=== PATIENT | male | born 1960 | race Two or more races ===

== ENCOUNTER 2020-04-19 13:09 | Inpatient (IN) | payer MEDICAID, OTHER ==
[~2020-04-19] VITALS: Ht 160 cm; Wt 78.0 kg
[2020-04-19 14:00] LABS: Basophils # (auto) 0 10 ^3/uL (0-0.2); Eosinophils # (auto) 0 10 ^3/uL (0-0.8); Lymphocytes # (auto) 0.5 10 ^3/uL (0.4-5.4); Nucleated Red Blood Cells % 0.1 %
[2020-04-19 14:03] LABS: Basophils % (auto) 0.2 % (0.0-2.0); Hematocrit 39.3 % (41.0-53.0); Hemoglobin 12.7 g/dL (13.5-17.5); Lymphocytes % (auto) 7.5 % (10.0-50.0); Mean Corpuscular Hemoglobin 24.4 pg (28.0-32.0); Mean Corpuscular Hgb Conc. 32.4 g/dL (32.0-36.0); Mean Corpuscular Volume 75.2 fL (80.0-100.0); Monocytes # (auto) 0.7 10 ^3/uL (0-1.3); Monocytes % (auto) 9.3 % (0.0-12.0); Neutrophils # (auto) 5.8 10 ^3/uL (1.6-8.6); Platelet Count (auto) 123 10^3/uL (140-450); Red Blood Cells 5.22 10^6/uL (4.5-5.90); Red Cell Distribution Width 17.9 % (11.8-14.3)
[2020-04-19 14:24] LABS: Albumin 2.9 g/dL (3.4-5.0); Anion Gap 10 (5-15); Blood Urea Nitrogen 18 mg/dL (7-18); Carbon Dioxide 18 mmol/L (21-32); Chloride 105 mmol/L (98-107); GFR African American 111 mL/min; GFR Non-African American 91 mL/min; Glucose 243 mg/dL (74-106); Potassium 4.5 mmol/L (3.5-5.1); Sodium 133 mmol/L (136-145)
[2020-04-19 14:29] LABS: Alanine Aminotransferase 47 U/L (16-61); Alkaline Phosphatase 110 U/L (45-117); Aspartate Aminotransferase 54 U/L (15-37); Bilirubin, Total 0.7 mg/dL (0.2-1.0); Total Protein 8.5 g/dL (6.4-8.2)
[2020-04-19] MEDS ORDERED: DOXYCYCLINE 100MG/250ML 250 ML IV ONE (17:15)
[2020-04-19] MEDS ORDERED: ZINC SULFATE 220mg CAP or TAB PO ONE (17:15)
[2020-04-19] MEDS ORDERED: DexAMETHasone SOD PHOS 10MG/1ML VIAL INJ IV ONE (17:15)
[2020-04-19] MEDS ORDERED: MORPHINE SULF INJ 2 MG/ML SYRINGE 1ML IV PRN ×2 (18:00→20:00)
[2020-04-19] MEDS ORDERED: NITROGLYCERIN 0.4 MG SL TAB SL PRN (18:00)
[2020-04-19] MEDS ORDERED: TEMAZEPAM 15 MG CAP PO PRN (20:00)
[2020-04-19] MEDS ORDERED: PROMETHAZINE HCL 25 MG/ML 1ML IV PRN (20:00)
[2020-04-19] MEDS: SODIUM CHLORIDE 0.9% 1,000 ML IV SCH (20:00)
[2020-04-19] MEDS ORDERED: LACTULOSE 20Gm/30ML SOLN PO PRN (20:00)
[2020-04-19] MEDS ORDERED: traMADol HCL 50 MG TAB PO PRN (20:00)
[2020-04-19] MEDS ORDERED: ACETAMINOPHEN 500 MG TAB PO PRN (20:00)
[2020-04-19] MEDS ORDERED: REMDESIVIR PER PHARMACY IV SCH (20:00)
[2020-04-19] MEDS ORDERED: DEXTROSE (50%) 50ML SYRG IV PRN (20:00)
[2020-04-19] MEDS ORDERED: ENOXAPARIN SOD 40 MG/0.4 ML SYRINGE SC SCH (22:00)
[2020-04-19] MEDS: InsuLIN REG 1unit/0.01ml Soln (100units/ml) SC SCH (22:00)
[2020-04-19] MEDS: ACCU-CHEK COMFORT CURVE STRIP VI SCH (22:38)
[2020-04-19] MEDS: DOXYCYCLINE 100MG/250ML 250 ML IV SCH (23:44)
[2020-04-19] MEDS: FAMOTIDINE 20 MG TAB PO SCH (23:44)
[2020-04-20 05:57] LABS: Basophils # (auto) 0 10 ^3/uL (0-0.2); Basophils % (auto) 0.1 % (0.0-2.0); Eosinophils # (auto) 0 10 ^3/uL (0-0.8); Lymphocytes # (auto) 0.3 10 ^3/uL (0.4-5.4); Mean Corpuscular Volume 75.2 fL (80.0-100.0); Monocytes # (auto) 0.2 10 ^3/uL (0-1.3); Neutrophils # (auto) 2.2 10 ^3/uL (1.6-8.6); White Blood Cell 2.7 10^3/uL (4.4-10.8)
[2020-04-20 05:59] LABS: Hematocrit 36.4 % (41.0-53.0); Hemoglobin 11.7 g/dL (13.5-17.5); Lymphocytes % (auto) 12.5 % (10.0-50.0); Mean Corpuscular Hemoglobin 24.2 pg (28.0-32.0); Mean Corpuscular Hgb Conc. 32.1 g/dL (32.0-36.0); Monocytes % (auto) 6.7 % (0.0-12.0); Neutrophils % (auto) 80.7 % (37.0-80.0); Nucleated Red Blood Cells % 0.3 %; Platelet Count (auto) 108 10^3/uL (140-450); Red Blood Cells 4.84 10^6/uL (4.5-5.90); Red Cell Distribution Width 17.9 % (11.8-14.3)
[2020-04-20 06:12] LABS: Albumin 2.6 g/dL (3.4-5.0); Calcium 8.2 mg/dL (8.5-10.1); Potassium 4.5 mmol/L (3.5-5.1)
[2020-04-20 06:15] LABS: BUN/Creatinine Ratio 29.7; Bilirubin, Total 0.7 mg/dL (0.2-1.0); Total Protein 7.9 g/dL (6.4-8.2)
[2020-04-20] MEDS: ACCU-CHEK COMFORT CURVE STRIP VI SCH ×4 (07:00→21:41)
[2020-04-20] MEDS: InsuLIN REG 1unit/0.01ml Soln (100units/ml) SC SCH ×6 (08:00→21:45)
[2020-04-20] MEDS: BUDESONIDE (INHALATION) 180 MCG IH IN SCH ×3 (08:04→22:00)
[2020-04-20] MEDS: DOXYCYCLINE 100MG/250ML 250 ML IV SCH ×2 (08:20→20:47)
[2020-04-20] MEDS: cefTRIAXone 1GM/50ML D5W 50 ML IV SCH (10:11)
[2020-04-20] MEDS: FAMOTIDINE 20 MG TAB PO SCH ×2 (10:12→21:51)
[2020-04-20] MEDS: ASCORBIC ACID 1,000 MG TAB PO SCH (10:12)
[2020-04-20] MEDS: CHOLECALCIFEROL (VITD3) 2,000 UNIT CAP PO SCH (10:12)
[2020-04-20] MEDS: ENOXAPARIN SOD 40 MG/0.4 ML SYRINGE SC SCH (10:12)
[2020-04-20] MEDS: SODIUM CHLORIDE 0.9% 1,000 ML IV SCH ×2 (10:12→21:51)
[2020-04-20] MEDS: DexAMETHasone SOD PHOS 10MG/1ML VIAL INJ IV SCH (10:12)
[2020-04-20] MEDS: ZINC SULFATE 220mg CAP or TAB PO SCH (10:12)
[2020-04-20] MEDS ORDERED: REMDESIVIR 200 MG in NS 210ml LOADING DOSE ADULT IV ONE (17:00)
[2020-04-20] MEDS: ALBUTEROL SULF HFA 90MCG INH 200DOSE IN PRN (23:28)
[2020-04-21] MEDS: InsuLIN REG 1unit/0.01ml Soln (100units/ml) SC SCH ×9 (06:47→23:40)
[2020-04-21] MEDS: ACCU-CHEK COMFORT CURVE STRIP VI SCH ×4 (06:48→22:00)
[2020-04-21] MEDS: ALBUTEROL SULF HFA 90MCG INH 200DOSE IN PRN ×2 (07:07→19:51)
[2020-04-21] MEDS: BUDESONIDE (INHALATION) 180 MCG IH IN SCH ×2 (07:07→19:51)
[2020-04-21] MEDS ORDERED: ENOXAPARIN SOD 60 MG/0.6 ML SYRINGE SC ONE (07:26)
[2020-04-21] MEDS: FAMOTIDINE 20 MG TAB PO SCH ×2 (08:24→22:00)
[2020-04-21] MEDS: CHOLECALCIFEROL (VITD3) 2,000 UNIT CAP PO SCH (08:24)
[2020-04-21] MEDS: ASCORBIC ACID 1,000 MG TAB PO SCH (08:24)
[2020-04-21] MEDS: ENOXAPARIN SOD 40 MG/0.4 ML SYRINGE SC SCH (08:24)
[2020-04-21] MEDS: ZINC SULFATE 220mg CAP or TAB PO SCH (08:24)
[2020-04-21] MEDS: DexAMETHasone SOD PHOS 10MG/1ML VIAL INJ IV SCH (08:24)
[2020-04-21] MEDS: DOXYCYCLINE 100MG/250ML 250 ML IV SCH ×2 (08:24→20:45)
[2020-04-21] MEDS: cefTRIAXone 1GM/50ML D5W 50 ML IV SCH (08:24)
[2020-04-21 08:53] LABS: Basophils # (auto) 0 10 ^3/uL (0-0.2); Eosinophils # (auto) 0 10 ^3/uL (0-0.8); Lymphocytes # (auto) 0.3 10 ^3/uL (0.4-5.4); Mean Corpuscular Volume 76.4 fL (80.0-100.0); Monocytes # (auto) 0.6 10 ^3/uL (0-1.3); Platelet Count (auto) 125 10^3/uL (140-450); White Blood Cell 7.2 10^3/uL (4.4-10.8)
[2020-04-21 08:55] LABS: Hematocrit 36.1 % (41.0-53.0); Hemoglobin 11.3 g/dL (13.5-17.5); Lymphocytes % (auto) 4.6 % (10.0-50.0); Mean Corpuscular Hgb Conc. 31.4 g/dL (32.0-36.0); Monocytes % (auto) 8.3 % (0.0-12.0); Neutrophils # (auto) 6.3 10 ^3/uL (1.6-8.6); Neutrophils % (auto) 87.1 % (37.0-80.0); Red Blood Cells 4.72 10^6/uL (4.5-5.90)
[2020-04-21 09:11] LABS: Albumin 2.6 g/dL (3.4-5.0); BUN/Creatinine Ratio 37.5; Potassium 4.3 mmol/L (3.5-5.1)
[2020-04-21 09:14] LABS: Bilirubin, Total 0.5 mg/dL (0.2-1.0); Lactic Acid w/Reflex 2.2 mmol/L (0.4-2.0); Total Protein 7.6 g/dL (6.4-8.2)
[2020-04-21 09:24] LABS: CRP High Sensitivity 3.1 mg/dL (< 0.3)
[2020-04-21] MEDS ORDERED: INSULIN LANTUS (GLARGINE) 1 /0.01ml (100units/ml) SC SCH (10:00)
[2020-04-21 10:53] LABS: % Iron Saturation 6.3 % (20-55)
[2020-04-21] MEDS: SODIUM CHLORIDE 0.9% 1,000 ML IV SCH (11:26)
[2020-04-21] MEDS ORDERED: FUROSEMIDE 20 MG/2 ML VIAL IV ONE (13:30)
[2020-04-21] MEDS ORDERED: POTASSIUM CHL 10 Meq TABLET PO ONE (13:30)
[2020-04-21] MEDS ORDERED: ENOXAPARIN SOD 80 MG/0.8ML SYRINGE SC ONE (14:00)
[2020-04-21] MEDS: REMDESIVIR 100 MG in SODIUM CHL 0.9% 250 ML IV SCH (17:18)
[2020-04-21] MEDS: ENOXAPARIN SOD 80 MG/0.8ML SYRINGE SC SCH (22:00)
[2020-04-21] MEDS: INSULIN LANTUS (GLARGINE) 1 /0.01ml (100units/ml) SC SCH (22:00)
[2020-04-22] MEDS: BUDESONIDE (INHALATION) 180 MCG IH IN SCH ×2 (06:39→22:10)
[2020-04-22] MEDS: ALBUTEROL SULF HFA 90MCG INH 200DOSE IN PRN ×2 (06:39→22:10)
[2020-04-22 06:44] LABS: Basophils # (auto) 0 10 ^3/uL (0-0.2); Basophils % (auto) 0.1 % (0.0-2.0); Eosinophils # (auto) 0 10 ^3/uL (0-0.8); Hemoglobin 12.1 g/dL (13.5-17.5); Lymphocytes # (auto) 0.5 10 ^3/uL (0.4-5.4); Monocytes # (auto) 0.8 10 ^3/uL (0-1.3); Nucleated Red Blood Cells % 0.1 %
[2020-04-22 06:56] LABS: Hematocrit 36.9 % (41.0-53.0); Lymphocytes % (auto) 6.5 % (10.0-50.0); Mean Corpuscular Hemoglobin 24.4 pg (28.0-32.0); Mean Corpuscular Hgb Conc. 32.8 g/dL (32.0-36.0); Mean Corpuscular Volume 74.4 fL (80.0-100.0); Monocytes % (auto) 10.6 % (0.0-12.0); Neutrophils # (auto) 6.1 10 ^3/uL (1.6-8.6); Neutrophils % (auto) 82.8 % (37.0-80.0); Platelet Count (auto) 141 10^3/uL (140-450); Red Blood Cells 4.96 10^6/uL (4.5-5.90); Red Cell Distribution Width 17.9 % (11.8-14.3); White Blood Cell 7.4 10^3/uL (4.4-10.8)
[2020-04-22 07:00] LABS: INR 1.24 (0.9-1.15); Partial Thromboplastin Time 36.2 sec (23.0-31.2)
[2020-04-22] MEDS: InsuLIN REG 1unit/0.01ml Soln (100units/ml) SC SCH ×7 (07:00→22:00)
[2020-04-22 07:01] LABS: Potassium 4.3 mmol/L (3.5-5.1)
[2020-04-22 07:21] LABS: Albumin 2.7 g/dL (3.4-5.0); BUN/Creatinine Ratio 44.3; Bilirubin, Total 0.6 mg/dL (0.2-1.0); Calcium 8.8 mg/dL (8.5-10.1); Magnesium 2.4 mg/dL (1.6-2.6); Total Protein 7.4 g/dL (6.4-8.2)
[2020-04-22] MEDS: ACCU-CHEK COMFORT CURVE STRIP VI SCH ×4 (07:57→22:00)
[2020-04-22] MEDS: DOXYCYCLINE 100MG/250ML 250 ML IV SCH ×2 (07:57→20:00)
[2020-04-22] MEDS: cefTRIAXone 1GM/50ML D5W 50 ML IV SCH (09:56)
[2020-04-22] MEDS: POTASSIUM CHL 10 Meq TABLET PO SCH (09:57)
[2020-04-22] MEDS: FUROSEMIDE 20 MG/2 ML VIAL IV SCH (09:57)
[2020-04-22] MEDS: DexAMETHasone SOD PHOS 10MG/1ML VIAL INJ IV SCH (09:57)
[2020-04-22] MEDS: ZINC SULFATE 220mg CAP or TAB PO SCH (09:57)
[2020-04-22] MEDS: FAMOTIDINE 20 MG TAB PO SCH ×2 (09:58→22:40)
[2020-04-22] MEDS: CHOLECALCIFEROL (VITD3) 2,000 UNIT CAP PO SCH (09:58)
[2020-04-22] MEDS: ASCORBIC ACID 1,000 MG TAB PO SCH (09:58)
[2020-04-22] MEDS: ENOXAPARIN SOD 80 MG/0.8ML SYRINGE SC SCH ×2 (09:58→22:40)
[2020-04-22 11:09] VITALS: BP 128/89
[2020-04-22 11:24] VITALS: BP 128/89
[2020-04-22 12:09] VITALS: BP 142/83
[2020-04-22 13:09] VITALS: BP 152/87
--- NOTE | 2020-04-22 14:17 | NUR ---
Assessment Patient is a 59 year old, patient was unable to participate with initial assessment, SW will call daughter in law Johannakeshawn. [facility], prior to patient being admitted, patient was alert and oriented, patient was ambulatory and could do all ADL's independently. Per Krystal, is employed. Per [facility], patient lives in [place] but came to [place] for iday and became ill. Per [facility], patient will reside with his son and daughter in law while recovering from illness. [facility], patient is a diabetic and has limited supplies. Per [facility], she will provide transportation post discharge. [facility], she is requesting Advance Directive forms. Discharge planning: Patient will return home to his son's house, Patient will resume diabetic home care, patient does not have all diabetic supplies for home care. [facility] will provide Advance Directive in [place] Sor[place] and Guyanese per daughter in law request. There are no other discharge needs to address at the moment. Addendum: 04/22/20 at 1427 by KAYLEE FORD Amended: Links added.
[2020-04-22] MEDS: REMDESIVIR 100 MG in SODIUM CHL 0.9% 250 ML IV SCH (17:21)
[2020-04-22] MEDS: INSULIN LANTUS (GLARGINE) 1 /0.01ml (100units/ml) SC SCH (22:40)
[2020-04-23] MEDS: BUDESONIDE (INHALATION) 180 MCG IH IN SCH ×2 (06:47→22:05)
[2020-04-23] MEDS: ALBUTEROL SULF HFA 90MCG INH 200DOSE IN PRN ×2 (06:48→22:33)
[2020-04-23] MEDS: InsuLIN REG 1unit/0.01ml Soln (100units/ml) SC SCH ×8 (07:00→22:10)
[2020-04-23] MEDS: ACCU-CHEK COMFORT CURVE STRIP VI SCH ×4 (07:02→22:23)
[2020-04-23] MEDS: POTASSIUM CHL 10 Meq TABLET PO SCH (10:00)
[2020-04-23] MEDS: cefTRIAXone 1GM/50ML D5W 50 ML IV SCH (10:25)
[2020-04-23] MEDS: ZINC SULFATE 220mg CAP or TAB PO SCH (10:26)
[2020-04-23] MEDS: ASCORBIC ACID 1,000 MG TAB PO SCH (10:27)
[2020-04-23] MEDS: ENOXAPARIN SOD 80 MG/0.8ML SYRINGE SC SCH ×2 (10:27→22:24)
[2020-04-23] MEDS: FAMOTIDINE 20 MG TAB PO SCH ×2 (10:27→22:24)
[2020-04-23] MEDS: DOXYCYCLINE 100MG/250ML 250 ML IV SCH ×2 (10:28→20:39)
[2020-04-23] MEDS: CHOLECALCIFEROL (VITD3) 2,000 UNIT CAP PO SCH (10:31)
[2020-04-23] MEDS: DexAMETHasone SOD PHOS 10MG/1ML VIAL INJ IV SCH (10:31)
[2020-04-23] MEDS: FUROSEMIDE 20 MG/2 ML VIAL IV SCH (10:52)
[2020-04-23] MEDS: REMDESIVIR 100 MG in SODIUM CHL 0.9% 250 ML IV SCH (16:50)
[2020-04-23] MEDS: INSULIN LANTUS (GLARGINE) 1 /0.01ml (100units/ml) SC SCH (22:00)
[2020-04-24 05:28] LABS: Basophils # (auto) 0 10 ^3/uL (0-0.2); Eosinophils # (auto) 0 10 ^3/uL (0-0.8); Hematocrit 38.6 % (41.0-53.0); Lymphocytes # (auto) 0.4 10 ^3/uL (0.4-5.4); Lymphocytes % (auto) 7.9 % (10.0-50.0); Mean Corpuscular Hemoglobin 23.7 pg (28.0-32.0); Mean Corpuscular Hgb Conc. 31.2 g/dL (32.0-36.0); Mean Corpuscular Volume 76.1 fL (80.0-100.0); Monocytes # (auto) 0.4 10 ^3/uL (0-1.3); Neutrophils # (auto) 4.5 10 ^3/uL (1.6-8.6); Neutrophils % (auto) 85.1 % (37.0-80.0); Nucleated Red Blood Cells % 0.1 %; Platelet Count (auto) 113 10^3/uL (140-450); Red Blood Cells 5.07 10^6/uL (4.5-5.90); Red Cell Distribution Width 17.7 % (11.8-14.3); White Blood Cell 5.3 10^3/uL (4.4-10.8)
[2020-04-24 05:47] LABS: INR 1.29 (0.9-1.15)
[2020-04-24 05:50] LABS: Potassium 3.8 mmol/L (3.5-5.1)
[2020-04-24 05:58] LABS: Albumin 2.5 g/dL (3.4-5.0); BUN/Creatinine Ratio 37.5; Bilirubin, Total 0.7 mg/dL (0.2-1.0); Calcium 8.1 mg/dL (8.5-10.1); Magnesium 2.4 mg/dL (1.6-2.6); Total Protein 7.2 g/dL (6.4-8.2)
[2020-04-24] MEDS: BUDESONIDE (INHALATION) 180 MCG IH IN SCH ×2 (06:04→22:00)
[2020-04-24] MEDS: ACCU-CHEK COMFORT CURVE STRIP VI SCH ×4 (06:53→22:20)
[2020-04-24] MEDS: InsuLIN REG 1unit/0.01ml Soln (100units/ml) SC SCH ×7 (06:54→22:26)
[2020-04-24] MEDS: DOXYCYCLINE 100MG/250ML 250 ML IV SCH (07:57)
[2020-04-24] MEDS: cefTRIAXone 1GM/50ML D5W 50 ML IV SCH (08:53)
[2020-04-24] MEDS: FUROSEMIDE 20 MG/2 ML VIAL IV SCH (10:51)
[2020-04-24] MEDS: ZINC SULFATE 220mg CAP or TAB PO SCH (10:51)
[2020-04-24] MEDS: DexAMETHasone SOD PHOS 10MG/1ML VIAL INJ IV SCH (10:51)
[2020-04-24] MEDS: CHOLECALCIFEROL (VITD3) 2,000 UNIT CAP PO SCH (10:52)
[2020-04-24] MEDS: ASCORBIC ACID 1,000 MG TAB PO SCH (10:52)
[2020-04-24] MEDS: POTASSIUM CHL 10 Meq TABLET PO SCH (10:52)
[2020-04-24] MEDS: FAMOTIDINE 20 MG TAB PO SCH ×2 (10:52→21:48)
[2020-04-24] MEDS: ENOXAPARIN SOD 80 MG/0.8ML SYRINGE SC SCH ×2 (10:53→21:49)
[2020-04-24] MEDS ORDERED: DEXTROSE (50%) 50ML SYRG IV PRN (12:30)
--- NOTE | 2020-04-24 13:48 | NUR ---
Respiratory note: PT SEEN AT THIS TIME TO DRAW ABG. PATIENT KEPT TAKING NRB OFF TO EAT HIS LUNCH THEREFORE ABG HAD CRITICAL VALUE TO REPORT TO . I INFORMED PATIENT TO PRONE AFTER HE IS DONE EATING. NO RESP DISTRESS NOTED.
[2020-04-24] MEDS: REMDESIVIR 100 MG in SODIUM CHL 0.9% 250 ML IV SCH (17:39)
[2020-04-24] MEDS ORDERED: InsuLIN REG 1unit/0.01ml Soln (100units/ml) SC SCH (22:00)
[2020-04-24] MEDS: INSULIN LANTUS (GLARGINE) 1 /0.01ml (100units/ml) SC SCH (22:26)
[2020-04-24] MEDS: ALBUTEROL SULF HFA 90MCG INH 200DOSE IN PRN (22:30)
[2020-04-25] MEDS: ACCU-CHEK COMFORT CURVE STRIP VI SCH ×4 (06:51→22:01)
[2020-04-25] MEDS ORDERED: InsuLIN REG 1unit/0.01ml Soln (100units/ml) ONE (06:59)
[2020-04-25] MEDS: InsuLIN REG 1unit/0.01ml Soln (100units/ml) SC SCH ×5 (06:59→22:01)
[2020-04-25] MEDS: BUDESONIDE (INHALATION) 180 MCG IH IN SCH ×2 (10:00→21:58)
[2020-04-25] MEDS: DexAMETHasone SOD PHOS 10MG/1ML VIAL INJ IV SCH (10:41)
[2020-04-25] MEDS: FUROSEMIDE 20 MG/2 ML VIAL IV SCH (10:42)
[2020-04-25] MEDS: POTASSIUM CHL 10 Meq TABLET PO SCH (10:43)
[2020-04-25] MEDS: ZINC SULFATE 220mg CAP or TAB PO SCH (10:43)
[2020-04-25] MEDS: ASCORBIC ACID 1,000 MG TAB PO SCH (10:44)
[2020-04-25] MEDS: ENOXAPARIN SOD 80 MG/0.8ML SYRINGE SC SCH ×2 (10:44→22:01)
[2020-04-25] MEDS: FAMOTIDINE 20 MG TAB PO SCH ×2 (10:44→22:00)
[2020-04-25] MEDS: CHOLECALCIFEROL (VITD3) 2,000 UNIT CAP PO SCH (10:47)
[2020-04-25 13:54] VITALS: BP 110/74
[2020-04-25 14:09] VITALS: BP 96/69
[2020-04-25 14:56] LABS: Alcohol, Urine < 3.0 mg/dL (0-10); Amphetamine Screen, Urine NEGATIVE (NEGATIVE); Barbiturate Scree,Urine NEGATIVE (NEGATIVE); Benzodiazephine Screen, Urine NEGATIVE (NEGATIVE); Cannabinoid Screen, Urine NEGATIVE (NEGATIVE); Cocaine Screen, Urine NEGATIVE (NEGATIVE); Opiate Scree,Urine NEGATIVE (NEGATIVE); Phencyclidine Screen, Urine NEGATIVE (NEGATIVE)
[2020-04-25 15:09] VITALS: BP 105/71
[2020-04-25 16:30] VITALS: BP 110/71
[2020-04-25] MEDS: ALBUTEROL SULF HFA 90MCG INH 200DOSE IN PRN (21:59)
[2020-04-25] MEDS: INSULIN LANTUS (GLARGINE) 1 /0.01ml (100units/ml) SC SCH (22:00)
[2020-04-26] MEDS: ACCU-CHEK COMFORT CURVE STRIP VI SCH ×4 (07:00→22:40)
[2020-04-26] MEDS: InsuLIN REG 1unit/0.01ml Soln (100units/ml) SC SCH ×4 (08:03→22:50)
[2020-04-26] MEDS: ALBUTEROL SULF HFA 90MCG INH 200DOSE IN PRN ×2 (08:11→21:36)
[2020-04-26] MEDS: BUDESONIDE (INHALATION) 180 MCG IH IN SCH ×2 (08:11→21:36)
[2020-04-26] MEDS: POTASSIUM CHL 10 Meq TABLET PO SCH (10:00)
[2020-04-26] MEDS: DexAMETHasone SOD PHOS 10MG/1ML VIAL INJ IV SCH (10:00)
[2020-04-26] MEDS: ENOXAPARIN SOD 80 MG/0.8ML SYRINGE SC SCH ×2 (10:00→22:40)
[2020-04-26] MEDS: FAMOTIDINE 20 MG TAB PO SCH ×2 (10:00→22:40)
[2020-04-26] MEDS: ZINC SULFATE 220mg CAP or TAB PO SCH (10:00)
[2020-04-26] MEDS: FUROSEMIDE 20 MG/2 ML VIAL IV SCH (10:00)
[2020-04-26] MEDS: ASCORBIC ACID 1,000 MG TAB PO SCH (10:00)
[2020-04-26] MEDS: CHOLECALCIFEROL (VITD3) 2,000 UNIT CAP PO SCH (10:00)
[2020-04-26 10:29] LABS: Basophils # (auto) 0 10 ^3/uL (0-0.2); Basophils % (auto) 0.2 % (0.0-2.0); Eosinophils # (auto) 0.1 10 ^3/uL (0-0.8); Mean Corpuscular Hemoglobin 24.4 pg (28.0-32.0); Mean Corpuscular Volume 74.9 fL (80.0-100.0); Monocytes # (auto) 0.8 10 ^3/uL (0-1.3); Neutrophils # (auto) 11.5 10 ^3/uL (1.6-8.6)
[2020-04-26 10:32] LABS: Eosinophils % (auto) 0.7 % (0.0-7.0); Hematocrit 41.4 % (41.0-53.0); Hemoglobin 13.5 g/dL (13.5-17.5); Lymphocytes # (auto) 0.3 10 ^3/uL (0.4-5.4); Lymphocytes % (auto) 2.4 % (10.0-50.0); Mean Corpuscular Hgb Conc. 32.6 g/dL (32.0-36.0); Monocytes % (auto) 6.6 % (0.0-12.0); Neutrophils % (auto) 90.1 % (37.0-80.0); Nucleated Red Blood Cells % 0.2 %; Platelet Count (auto) 166 10^3/uL (140-450); Red Blood Cells 5.53 10^6/uL (4.5-5.90); Red Cell Distribution Width 17.4 % (11.8-14.3); White Blood Cell 12.7 10^3/uL (4.4-10.8)
[2020-04-26 10:55] LABS: Potassium 3.9 mmol/L (3.5-5.1)
[2020-04-26 11:00] LABS: BUN/Creatinine Ratio 46.3; Calcium 8.3 mg/dL (8.5-10.1)
[2020-04-26] MEDS: INSULIN LANTUS (GLARGINE) 1 /0.01ml (100units/ml) SC SCH (22:50)
[2020-04-27 06:16] LABS: Basophils # (auto) 0 10 ^3/uL (0-0.2); Basophils % (auto) 0.1 % (0.0-2.0); Eosinophils # (auto) 0 10 ^3/uL (0-0.8); Lymphocytes # (auto) 0.4 10 ^3/uL (0.4-5.4)
[2020-04-27 06:18] LABS: Hematocrit 39.3 % (41.0-53.0); Hemoglobin 12.7 g/dL (13.5-17.5); Mean Corpuscular Hemoglobin 24.2 pg (28.0-32.0); Mean Corpuscular Hgb Conc. 32.2 g/dL (32.0-36.0); Monocytes % (auto) 9.4 % (0.0-12.0); Neutrophils # (auto) 8.8 10 ^3/uL (1.6-8.6); Neutrophils % (auto) 86.5 % (37.0-80.0); Nucleated Red Blood Cells % 0.1 %; Platelet Count (auto) 171 10^3/uL (140-450); Red Blood Cells 5.24 10^6/uL (4.5-5.90); Red Cell Distribution Width 17.4 % (11.8-14.3); White Blood Cell 10.2 10^3/uL (4.4-10.8)
[2020-04-27 06:20] LABS: Albumin 2.4 g/dL (3.4-5.0); Calcium 8.4 mg/dL (8.5-10.1); Potassium 4.4 mmol/L (3.5-5.1)
[2020-04-27 06:22] LABS: BUN/Creatinine Ratio 49.4
[2020-04-27 06:23] LABS: Bilirubin, Total 0.7 mg/dL (0.2-1.0); Total Protein 7.3 g/dL (6.4-8.2)
[2020-04-27] MEDS: InsuLIN REG 1unit/0.01ml Soln (100units/ml) SC SCH ×4 (07:00→21:33)
[2020-04-27] MEDS: ACCU-CHEK COMFORT CURVE STRIP VI SCH ×4 (07:27→21:34)
[2020-04-27] MEDS: BUDESONIDE (INHALATION) 180 MCG IH IN SCH ×2 (07:45→21:32)
[2020-04-27] MEDS: ALBUTEROL SULF HFA 90MCG INH 200DOSE IN PRN ×2 (08:34→21:33)
[2020-04-27] MEDS: DexAMETHasone SOD PHOS 10MG/1ML VIAL INJ IV SCH (09:15)
[2020-04-27] MEDS: FAMOTIDINE 20 MG TAB PO SCH ×2 (09:16→21:30)
[2020-04-27] MEDS: ASCORBIC ACID 1,000 MG TAB PO SCH (09:16)
[2020-04-27] MEDS: POTASSIUM CHL 10 Meq TABLET PO SCH (09:16)
[2020-04-27] MEDS: ENOXAPARIN SOD 80 MG/0.8ML SYRINGE SC SCH ×2 (09:16→21:34)
[2020-04-27] MEDS: CHOLECALCIFEROL (VITD3) 2,000 UNIT CAP PO SCH (09:16)
[2020-04-27] MEDS: ZINC SULFATE 220mg CAP or TAB PO SCH (09:16)
[2020-04-27] MEDS: INSULIN LANTUS (GLARGINE) 1 /0.01ml (100units/ml) SC SCH (21:33)
[2020-04-28] MEDS: InsuLIN REG 1unit/0.01ml Soln (100units/ml) SC SCH ×5 (06:18→21:35)
[2020-04-28] MEDS: ACCU-CHEK COMFORT CURVE STRIP VI SCH ×4 (06:37→21:35)
[2020-04-28] MEDS: BUDESONIDE (INHALATION) 180 MCG IH IN SCH ×2 (06:48→18:27)
[2020-04-28] MEDS: ALBUTEROL SULF HFA 90MCG INH 200DOSE IN PRN ×2 (06:48→19:05)
[2020-04-28] MEDS: ENOXAPARIN SOD 80 MG/0.8ML SYRINGE SC SCH ×2 (10:06→21:35)
[2020-04-28] MEDS: FAMOTIDINE 20 MG TAB PO SCH ×2 (10:07→21:34)
[2020-04-28] MEDS: ZINC SULFATE 220mg CAP or TAB PO SCH (10:07)
[2020-04-28] MEDS: DexAMETHasone SOD PHOS 10MG/1ML VIAL INJ IV SCH (10:08)
[2020-04-28] MEDS: ASCORBIC ACID 1,000 MG TAB PO SCH (10:09)
[2020-04-28] MEDS: CHOLECALCIFEROL (VITD3) 2,000 UNIT CAP PO SCH (10:09)
[2020-04-28] MEDS ORDERED: cefTRIAXone 1GM/50ML D5W 50 ML IV ONE (17:45)
[2020-04-28] MEDS ORDERED: POTASSIUM CHL 10 Meq TABLET PO ONE (17:45)
[2020-04-28] MEDS ORDERED: FUROSEMIDE 40 MG/4 ML VIAL IV ONE (17:45)
[2020-04-28] MEDS: INSULIN LANTUS (GLARGINE) 1 /0.01ml (100units/ml) SC SCH (21:34)
[2020-04-28 23:50] VITALS: BP 121/78
[2020-04-28 23:55] VITALS: BP 121/78
--- NOTE | 2020-04-29 04:58 | NUR ---
Patient sat on the edge of the bed to urinate and desat to 77%. Patient got back to bed and advised self proning and saturation went up to 89% in a few minutes. Will continue to monitor.
[2020-04-29 05:00] VITALS: BP 107/72
[2020-04-29] MEDS: BUDESONIDE (INHALATION) 180 MCG IH IN SCH ×2 (06:21→20:17)
[2020-04-29] MEDS: ALBUTEROL SULF HFA 90MCG INH 200DOSE IN PRN ×2 (06:21→20:17)
[2020-04-29] MEDS: ACCU-CHEK COMFORT CURVE STRIP VI SCH ×4 (07:00→21:30)
[2020-04-29] MEDS: InsuLIN REG 1unit/0.01ml Soln (100units/ml) SC SCH ×4 (07:00→21:28)
[2020-04-29 07:11] LABS: Calcium 8.7 mg/dL (8.5-10.1); Potassium 4.1 mmol/L (3.5-5.1)
--- NOTE | 2020-04-29 08:00 | NUR ---
ASSUMED CARE OF PATIENT RESTING IN BED WITH EYES CLOSED. PATIENT IS CURRENTLY ON 15L NON REBREATHER AND HAS EVEN AND NON LABORED RESPIRATIONS. HOB ELEVATED AT LEAST 30 DEGREES, CALL LIGHT IS WITHIN REACH AND BED IS LOCKED IN THE LOWEST POSITION. CONTINUE CARE.
[2020-04-29 09:21] VITALS: BP 113/71
[2020-04-29] MEDS: FUROSEMIDE 40 MG/4 ML VIAL IV SCH (10:00)
[2020-04-29] MEDS: DexAMETHasone SOD PHOS 10MG/1ML VIAL INJ IV SCH (10:00)
[2020-04-29] MEDS: CHOLECALCIFEROL (VITD3) 2,000 UNIT CAP PO SCH (10:00)
[2020-04-29] MEDS: ASCORBIC ACID 1,000 MG TAB PO SCH (10:00)
[2020-04-29] MEDS: FAMOTIDINE 20 MG TAB PO SCH ×2 (10:00→21:30)
[2020-04-29] MEDS: cefTRIAXone 1GM/50ML D5W 50 ML IV SCH (10:00)
[2020-04-29] MEDS: ZINC SULFATE 220mg CAP or TAB PO SCH (10:00)
[2020-04-29] MEDS: POTASSIUM CHL 10 Meq TABLET PO SCH (10:00)
[2020-04-29] MEDS: ENOXAPARIN SOD 80 MG/0.8ML SYRINGE SC SCH ×2 (10:30→21:30)
--- NOTE | 2020-04-29 11:40 | NUR ---
DR FUNES AT BEDSIDE. DR FUNES VERBALIZED THAT SHE HAD PLACED ORDERS TO PLACE PATIENT ON HIGH FLOW OXYGEN. CONTINUE CARE.
--- NOTE | 2020-04-29 11:56 | NUR ---
Nutrition Assessment Est energy needs 2195-4976 kcal (25-30 kcal/kg BW 63.5kg) Est protein needs 51-64g (0.8-1g/kg BW 63.5kg) Will monitor and reassess prn. Addendum: 04/29/20 at [address] Amended: Links added.
--- NOTE | 2020-04-29 12:00 | NUR ---
DR HAWKINS AT BEDSIDE. UPDATED HER ON PATIENT'S CURRENT CONDITION. NO NEW ORDERS AT THIS TIME. CONTINUE CARE.
[2020-04-29 13:00] VITALS: BP 99/68
[2020-04-29 17:00] VITALS: BP 110/73
--- NOTE | 2020-04-29 19:00 | NUR ---
PO INTAKE DURING SHIFT WAS 1100ML. OUTPUT WAS 700ML DURING SHIFT.
--- NOTE | 2020-04-29 19:14 | NUR ---
ENDORSED CARE TO NOC SHIFT RN
--- NOTE | 2020-04-29 19:20 | NUR ---
Opening Shift Note Received report from Rogerio SCHWARTZ. Assumed care of patient, awake and alert, on upright position sating 88% on 15L non-rebreather. No S/S of distress/SOB or pain. Instructed on POC and to call for assist PRN. Fall precaution measures in place, will continue to monitor for changes Q1hr and PRN.
--- NOTE | 2020-04-29 20:07 | NUR ---
Patient's HR goes up to 200s in the monitor. This RN went in to assessed patient, O2 %saturation in the low 80s, patient states he is okay. Advised self proning and saturation up to 88%. Spoke to residential monitor Mario and states it's double counting and advised to adjust the leads. After adjusting the leads HR is 105. Will continue monitoring the patient.
--- NOTE | 2020-04-29 21:10 | NUR ---
Patient on high flow oxygen at 60L saturating between 88-90%, continue care.
[2020-04-29] MEDS: INSULIN LANTUS (GLARGINE) 1 /0.01ml (100units/ml) SC SCH (21:29)
[2020-04-29 22:00] VITALS: BP 120/67
--- NOTE | 2020-04-30 00:02 | NUR ---
Rounding Patient is awake watching TV. O2 saturation is 91% on high flow. Continue care.
[2020-04-30 05:00] VITALS: BP 101/71
[2020-04-30] MEDS: ACCU-CHEK COMFORT CURVE STRIP VI SCH ×4 (06:57→22:22)
[2020-04-30] MEDS: InsuLIN REG 1unit/0.01ml Soln (100units/ml) SC SCH ×4 (06:58→22:21)
[2020-04-30 08:00] VITALS: BP 110/71
[2020-04-30 08:11] VITALS: BP 110/71
[2020-04-30] MEDS: BUDESONIDE (INHALATION) 180 MCG IH IN SCH ×2 (08:34→23:54)
[2020-04-30] MEDS: ALBUTEROL SULF HFA 90MCG INH 200DOSE IN PRN ×2 (08:34→23:54)
[2020-04-30] MEDS: FUROSEMIDE 40 MG/4 ML VIAL IV SCH (09:45)
[2020-04-30] MEDS: ZINC SULFATE 220mg CAP or TAB PO SCH (09:45)
[2020-04-30] MEDS: cefTRIAXone 1GM/50ML D5W 50 ML IV SCH (09:45)
[2020-04-30] MEDS: DexAMETHasone SOD PHOS 10MG/1ML VIAL INJ IV SCH (09:45)
[2020-04-30] MEDS: ASCORBIC ACID 1,000 MG TAB PO SCH (09:46)
[2020-04-30] MEDS: FAMOTIDINE 20 MG TAB PO SCH ×2 (09:46→22:19)
[2020-04-30] MEDS: POTASSIUM CHL 10 Meq TABLET PO SCH (09:46)
[2020-04-30] MEDS: CHOLECALCIFEROL (VITD3) 2,000 UNIT CAP PO SCH (09:46)
[2020-04-30] MEDS: ENOXAPARIN SOD 80 MG/0.8ML SYRINGE SC SCH ×2 (09:47→22:22)
--- NOTE | 2020-04-30 10:56 | NUR ---
Dr. Quintero / mercerizing range feeder at bed side, RT at bed side also, doctor discussed the plan of care with pt and RT, as per doctor, pt will be placed on the BIPAP.
--- NOTE | 2020-04-30 11:45 | NUR ---
Dr. Fontaine at bed side to see pt, doctor informed that pt has been placed on the BIPAP, requested anxiety medication, orders received for Ativan 0.5 mg IV q 6hr prn.
[2020-04-30] MEDS ORDERED: LORazepam 2MG/ML-1ML VIAL IV PRN (12:00)
[2020-04-30 12:30] VITALS: BP 123/76
[2020-04-30] MEDS ORDERED: ACETAMINOPHEN 650 mg PER 20.3 mL UD PO ONE (14:30)
[2020-04-30] MEDS ORDERED: methylPREDNISolone SOD SUCC 40 MG/ML VL IV ONE (14:30)
[2020-04-30] MEDS ORDERED: diphenhdrAMINE HCL 50 MG/1 ML VL IV ONE (14:30)
[2020-04-30] MEDS ORDERED: TOCILIZUMAB 400 MG in SODIUM CHL 0.9% 80 ML IV ONE (15:00)
[2020-04-30 17:25] VITALS: BP 89/63
--- NOTE | 2020-04-30 18:28 | NUR ---
Pt resting sleeping comfortably, pt on BIPAP, O2 sat at 89%, will continue to monitor pt.
--- NOTE | 2020-04-30 18:29 | NUR ---
Ectemra At 1540 started Ectemra, v/s taken, BP 109/74, HR 95, v/s retaken at 1700, BP 99/70, HR 84, 1750 medication treatment finished, line flused, v/s taken, BP 99/71, HR 80, will continue to monitor pt.
[2020-04-30 22:00] VITALS: BP 120/76
[2020-04-30] MEDS: INSULIN LANTUS (GLARGINE) 1 /0.01ml (100units/ml) SC SCH (22:21)
[2020-05-01] VITALS (46 sets, daily range): BP systolic 72–181; BP diastolic 36–130
--- NOTE | 2020-05-01 06:20 | NUR ---
Respiratory note: PT RECIEVED ON BIPAP WITH ABOVE ORDERED SETTINGS. ALL ALARMS ARE SET AND AUDIBLE. MACHINE PLUGGED INTO RED OUTLET. AMBU BAG WITH MASK AND PEEP VALVE AT BEDSIDE. HEAD AND MASK REPOSITIONED. NO SKIN BREAKDOWN NOTED. MDI TX'S GIVEN AND TOLERATED WELL.
[2020-05-01] MEDS: InsuLIN REG 1unit/0.01ml Soln (100units/ml) SC SCH ×4 (06:32→21:11)
[2020-05-01] MEDS: ACCU-CHEK COMFORT CURVE STRIP VI SCH ×4 (06:34→21:12)
[2020-05-01] MEDS: cefTRIAXone 1GM/50ML D5W 50 ML IV SCH (08:57)
[2020-05-01] MEDS ORDERED: methylPREDNISolone SOD SUCC 40 MG/ML VL IV ONE (09:30)
[2020-05-01] MEDS ORDERED: ACETAMINOPHEN 650 mg PER 20.3 mL UD PO ONE (09:30)
[2020-05-01] MEDS ORDERED: diphenhdrAMINE HCL 50 MG/1 ML VL IV ONE (09:30)
[2020-05-01] MEDS: BUDESONIDE (INHALATION) 180 MCG IH IN SCH ×2 (10:00→21:43)
[2020-05-01] MEDS ORDERED: TOCILIZUMAB 400 MG in SODIUM CHL 0.9% 80 ML IV ONE (10:00)
[2020-05-01] MEDS: DexAMETHasone SOD PHOS 10MG/1ML VIAL INJ IV SCH (10:32)
[2020-05-01] MEDS: POTASSIUM CHL 10 Meq TABLET PO SCH (10:34)
[2020-05-01] MEDS: FUROSEMIDE 40 MG/4 ML VIAL IV SCH (10:34)
[2020-05-01] MEDS: FAMOTIDINE 20 MG TAB PO SCH (10:34)
[2020-05-01] MEDS: ZINC SULFATE 220mg CAP or TAB PO SCH (10:34)
[2020-05-01] MEDS: ENOXAPARIN SOD 80 MG/0.8ML SYRINGE SC SCH ×2 (10:35→21:12)
[2020-05-01] MEDS: ASCORBIC ACID 1,000 MG TAB PO SCH (10:35)
[2020-05-01] MEDS: CHOLECALCIFEROL (VITD3) 2,000 UNIT CAP PO SCH (10:35)
[2020-05-01] MEDS: ALBUTEROL SULF HFA 90MCG INH 200DOSE IN PRN (10:43)
[2020-05-01] MEDS ORDERED: ROCURONIUM 10MG/ML 10ML VIAL IV ONE ×2 (11:42→12:30)
[2020-05-01] MEDS ORDERED: ETOMIDATE (2MG/ML) 20ML VIAL IV ONE ×2 (11:42→12:30)
[2020-05-01] MEDS ORDERED: fentaNYL Drip 2500mCg/250mlNS 250 ML IV ONE (11:51)
[2020-05-01] MEDS ORDERED: MIDAZOLAM DRIP 50 mg/50mL 50 ML IV ONE (11:51)
--- NOTE | 2020-05-01 12:00 | NUR ---
Respiratory note: PT INTUBATED WITH SIZE 7.5 SECURED AT 24 CM AT THE LIP. ETT SECURE WITH HOLISTER. PT INTUBATED ON FIRST ATTEMPT WITH POSITIVE COLOR CHANGE, EQUAL CHEST RISE AND FALL, BILATERAL B/S WITH AUSCULTATION. ETT PLACEMENT VERIFIED WITH CHEST XRAY. vENT SETTINGS ORDERED. ALL ALARMS ARE SET AND AUDIBLE. MACHINE PLUGGED INTO RED OUTLET. NEW WATER SIMON FOR HEATER. AMBU BAG WITH MASK AND PEEP VALVE AT BEDSIDE.
[2020-05-01] MEDS ORDERED: NOREPINEPHRINE 8 MG/250ML KIT 250 ML IV ONE (12:02)
--- NOTE | 2020-05-01 12:35 | NUR ---
Pt intubated by Dr. Quintero / hand leather trimmer, RT at bed side, charge nurse at bed side, ICU charge nurse at bed side, and Dr. Fontaine at bed side, NGT inserted, Vora catheter inserted.
--- NOTE | 2020-05-01 12:42 | NUR ---
Ectemra At 1100 started Ectemra treatment, v/s taken , HR 109, v/s retaken at 1115, vs retaken, 118/62, HR 106, at 1145 Medication treatment stopped due to pt been intubated.
--- NOTE | 2020-05-01 12:44 | NUR ---
Called ICU and gave report to EFREN Swift.
[2020-05-01] MEDS: fentaNYL Drip 2500mCg/250mlNS 250 ML IV SCH (12:46)
[2020-05-01] MEDS: MIDAZOLAM DRIP 50 mg/50mL 50 ML IV SCH ×2 (12:48→22:30)
[2020-05-01] MEDS ORDERED: PROPOFOL 100 ML IV ONE (13:03)
--- NOTE | 2020-05-01 13:10 | NUR ---
RECEIVED PATIENT FROM FLOOR AND CONNECTED TO BEDSIDE MONITOR AND VENTILATOR BY RESPIRATORY THERAPIST
[2020-05-01] MEDS: NOREPINEPHRINE 8 MG/250ML KIT 250 ML IV SCH ×2 (13:45→23:45)
[2020-05-01] MEDS: PROPOFOL 100 ML IV SCH ×3 (13:45→23:02)
--- NOTE | 2020-05-01 14:00 | NUR ---
Respiratory note: PT PEEP INCREASE TO +12 PER VERBAL ORDER FROM DR. FUNES. SETTING CHANGED AND PATIENT TOLERATING WELL.
--- NOTE | 2020-05-01 14:30 | NUR ---
PICC LINE CONSENT OBTAINED FROM PATIENTS GINNY ALONSO, USING YAKUT SPEAKER TO TRANSLATE. 2ND RN VERIFIED
[2020-05-01 14:32] LABS: Basophils # (auto) 0.1 10 ^3/uL (0-0.2); Eosinophils # (auto) 0 10 ^3/uL (0-0.8); Lymphocytes # (auto) 0.2 10 ^3/uL (0.4-5.4); Lymphocytes % (auto) 1.2 % (10.0-50.0); Monocytes # (auto) 0.4 10 ^3/uL (0-1.3); Monocytes % (auto) 2.1 % (0.0-12.0)
[2020-05-01 14:34] LABS: Basophils % (auto) 0.4 % (0.0-2.0); Hematocrit 45.5 % (41.0-53.0); Hemoglobin 14.9 g/dL (13.5-17.5); Mean Corpuscular Hemoglobin 24.9 pg (28.0-32.0); Mean Corpuscular Hgb Conc. 32.8 g/dL (32.0-36.0); Mean Corpuscular Volume 75.9 fL (80.0-100.0); Neutrophils # (auto) 19.6 10 ^3/uL (1.6-8.6); Neutrophils % (auto) 96.3 % (37.0-80.0); Nucleated Red Blood Cells % 0.2 %; Platelet Count (auto) 309 10^3/uL (140-450); Red Blood Cells 5.99 10^6/uL (4.5-5.90); Red Cell Distribution Width 17.5 % (11.8-14.3); White Blood Cell 20.4 10^3/uL (4.4-10.8)
[2020-05-01 14:46] LABS: Albumin 2.4 g/dL (3.4-5.0); Calcium 8.4 mg/dL (8.5-10.1); Potassium 4.8 mmol/L (3.5-5.1)
[2020-05-01 14:50] LABS: BUN/Creatinine Ratio 43.9; Bilirubin, Total 0.8 mg/dL (0.2-1.0); Total Protein 8.1 g/dL (6.4-8.2)
[2020-05-01 15:03] LABS: INR 1.18 (0.9-1.15)
--- NOTE | 2020-05-01 15:39 | NUR ---
PICC LINE RN AT BEDSIDE
--- NOTE | 2020-05-01 17:03 | NUR ---
PICC line placement Patient significant other educated on need for PICC line placement. All risks and benefits explained and all questions and concerns addressed prior to procedure. Noted past medical history and allergies with no contraindications. INR and Plt counts within acceptable range. 5 fr PICC line inserted via RIGHT BRACHIAL vein using [employer] US and Tip Location System. Sterile technique with maximum barrier precautions utilized. Blood return obtained from each OF THE THREE lumens and each flushed easily with NS using proper technique. PICC secured with Stat-lock; biodisc and occlusive dressing applied. Stat portable chest x-ray obtained for PICC tip placement. *Baseline Arm Circumference 26 CM INTERNAL LENGTH 45 CM EXTERNAL LENGTH 0 CM PICC lot # [id number]
--- NOTE | 2020-05-01 17:57 | NUR ---
PICC LINE RETRACTION PER RECOMMENDATION BY RADIOLOGIST I RETRACTED PICC LINE BY 3 CM USING STERILE TECHNIQUE. PT TOLERATED WELL AND PRIMARY RN MEI NOTIFIED.
--- NOTE | 2020-05-01 17:58 | NUR ---
OK to use PICC line Xray completed. OK to use PICC line.
--- NOTE | 2020-05-01 18:26 | NUR ---
AT BEDSIDE IN FULL PPE DUE TO COVID PRECAUTIONS. RECEIVED PT ON VENT #[id number], VENT CONNECTED TO RED OUTLET AND O2 SOURCE ALARMS ARE SET AND AUDIBLE. AMBU BAG/PEEP VALVE AND MASK AT BEDSIDE. BS ARE FINE COURSE SXD VIA ETT FOR SCANT CLEAR SECRETIONS. SPUTUM SAMPLE OBTAINED AND SENT TO LAB. WILL CONTINUE TO MONITOR. VENTILATION PRESSURES HAVE INCREASED EFREN HURLEY COMMUNICATED ON PTS PIP INCREASE. RN COMMUNICATED VENT SETTINGS WHERE ORDERED TO CHANGED AT 1720 PER MD Bladimir FUNES. WILL MONITOR IF CONTINUES TO WILL CONTACT HOSPITALIST FOR NEW ORDERS.
[2020-05-01] MEDS ORDERED: PIPERACILLIN-TAZOB 3.375GM 100 ML IV ONE (19:30)
[2020-05-01] MEDS: LINEZOLID 600MG/300ML 300 ML IV SCH (20:00)
--- NOTE | 2020-05-01 20:30 | NUR ---
PAGED TO BEDSIDE BY EFREN Campbell DUE TO INCREASED PIP. PT APPEARS TO BE UNCOMFORTABLE VENTILATING. AT BEDSIDE IN FULL PPE DUE TO ISO PRECAUTIONS. ABG OBTAINED.
--- NOTE | 2020-05-01 20:55 | NUR ---
VENT CHANGES MADE POST ABG (20:30) RESULTS PER KEVIN LABOY. WILL OBTAIN ANOTHER ABG TO ASSURE VENTILATOR CHANGES ARE BEING TOLERATED. WILL CONTINUE TO MONITOR. EFREN Yu. COMMUNICATED ON CHANGES AND PT/VENT POC.
[2020-05-01] MEDS: INSULIN LANTUS (GLARGINE) 1 /0.01ml (100units/ml) SC SCH (21:11)
[2020-05-01] MEDS: SODIUM CHLOR 0.9% PF (SALINE LOCK) 10ML VIAL/SYR IV SCH (21:11)
--- NOTE | 2020-05-01 22:15 | NUR ---
AT BEDSIDE IN FULL PPE DUE TO ISOLATION PRECAUTIONS, POST VENT CHANGES ABG OBTAINED AT THIS TIME.
[2020-05-01] MEDS: BUDESONIDE (INHALATION) 0.5 MG/2 ML NEB NEB SCH (22:58)
[2020-05-01] MEDS: ALBUTEROL SULF 2.5 MG/0.5ML(0.5%) NEB SOLN NEB SCH (22:58)
--- NOTE | 2020-05-01 22:58 | NUR ---
AT BEDSIDE IN FULL PPE DUE TO COVID PRECAUTIONS. VENT CHECK DONE AT THIS TIME. MED NEB TX GIVEN INLINE WITHOUT ADVERSE REACTION NOTED. WILL CONTINUE TO MONITOR PT.
[2020-05-01] MEDS: PIPERACILLIN-TAZOB 3.375GM 100 ML IV SCH (23:52)
[2020-05-02] VITALS (68 sets, daily range): BP systolic 59–147; BP diastolic 36–91
[2020-05-02] MEDS: fentaNYL Drip 2500mCg/250mlNS 250 ML IV SCH
--- NOTE | 2020-05-02 01:10 | NUR ---
ABG OBTAINED AT THIS TIME.
--- NOTE | 2020-05-02 01:23 | NUR ---
PEEP INCREASED TO +[id number], PER AQUACULTURE PROGRAM DIRECTOR OKPAN DUE TO POST ABG RESULTS. EFREN Yu. AT BEDSIDE AND AWARE OF CHANGE.
[2020-05-02] MEDS: MIDAZOLAM DRIP 50 mg/50mL 50 ML IV SCH ×4 (02:03→22:15)
[2020-05-02 02:55] LABS: Urine Bacteria FEW /hpf (None Seen); Urine Blood 2+ /uL (Negative); Urine Hyaline Cast MANY /lpf (0 - 2); Urine Mucus FEW (None Seen); Urine Specific Gravity 1.022 (1.001-1.035); Urine WBC 6 /hpf (0 - 3)
--- NOTE | 2020-05-02 02:55 | NUR ---
ROUTINE VENT CHECK DONE FROM PTS ROOM DOOR DUE TO ISOLATION PRECAUTIONS. NO VENT CHANGES MADE WILL CONTINUE TO MONITOR.
[2020-05-02] MEDS: PROPOFOL 100 ML IV SCH ×3 (03:30→19:30)
[2020-05-02] MEDS: InsuLIN REG 1unit/0.01ml Soln (100units/ml) SC SCH ×4 (05:05→23:05)
[2020-05-02] MEDS: PIPERACILLIN-TAZOB 3.375GM 100 ML IV SCH ×3 (05:05→18:53)
[2020-05-02] MEDS: ACCU-CHEK COMFORT CURVE STRIP VI SCH ×3 (05:06→18:00)
[2020-05-02 05:33] LABS: Basophils # (auto) 0 10 ^3/uL (0-0.2); Basophils % (auto) 0.2 % (0.0-2.0); Eosinophils # (auto) 0 10 ^3/uL (0-0.8); Hematocrit 42.3 % (41.0-53.0); Hemoglobin 13.3 g/dL (13.5-17.5); Lymphocytes # (auto) 0.6 10 ^3/uL (0.4-5.4); Lymphocytes % (auto) 3.6 % (10.0-50.0); Mean Corpuscular Hemoglobin 24.1 pg (28.0-32.0); Mean Corpuscular Hgb Conc. 31.5 g/dL (32.0-36.0); Mean Corpuscular Volume 76.4 fL (80.0-100.0); Monocytes # (auto) 1.1 10 ^3/uL (0-1.3); Monocytes % (auto) 6.1 % (0.0-12.0); Neutrophils # (auto) 15.8 10 ^3/uL (1.6-8.6); Neutrophils % (auto) 90.1 % (37.0-80.0); Platelet Count (auto) 254 10^3/uL (140-450); Red Blood Cells 5.53 10^6/uL (4.5-5.90); Red Cell Distribution Width 17.4 % (11.8-14.3); White Blood Cell 17.5 10^3/uL (4.4-10.8)
[2020-05-02 05:49] LABS: Lactic Acid w/Reflex 3.9 mmol/L (0.4-2.0)
[2020-05-02 05:52] LABS: Calcium 8.3 mg/dL (8.5-10.1)
[2020-05-02 05:58] LABS: Albumin 2.1 g/dL (3.4-5.0); BUN/Creatinine Ratio 38.7; Bilirubin, Total 0.6 mg/dL (0.2-1.0); Total Protein 6.9 g/dL (6.4-8.2)
[2020-05-02 06:23] LABS: Potassium 5.6 mmol/L (3.5-5.1)
[2020-05-02] MEDS ORDERED: SODIUM BICARBONATE 8.4% INJ 50ML SYRINGE IV ONE (06:30)
[2020-05-02] MEDS ORDERED: DEXTROSE (50%) 50ML SYRG IV ONE (06:30)
[2020-05-02] MEDS ORDERED: SODIUM ZIRCONIUM CYCL 10 GM PAK PO ONE (06:30)
[2020-05-02] MEDS ORDERED: CALCIUM GLUC 4.65meq/50ml D5AE 50 ML IV ONE (06:30)
[2020-05-02] MEDS ORDERED: InsuLIN REG 1unit/0.01ml Soln (100units/ml) IV ONE (06:30)
--- NOTE | 2020-05-02 06:31 | NUR ---
Critical high potassium of 5.6: page sent to corrections identification technician hospitalist: hyperkalemia protocol
[2020-05-02 06:50] LABS: INR 1.25 (0.9-1.15)
[2020-05-02] MEDS: ALBUTEROL SULF 2.5 MG/0.5ML(0.5%) NEB SOLN NEB SCH ×3 (07:34→23:05)
[2020-05-02] MEDS: BUDESONIDE (INHALATION) 0.5 MG/2 ML NEB NEB SCH ×2 (07:34→23:04)
--- NOTE | 2020-05-02 09:00 | NUR ---
WOUND CARE NOTE: PATIENT WAS TRANSFERRED FROM [facility] UNIT TO ICU D/T INTUBATION STATUS. HE WAS ADMITTED TO [facility] WITH DIAGNOSIS OF SEPSIS, COVID 19. CURRENT MICHELE SCORE IS 10. HE IS IN [place] ISOLATION FOR COVID 19. PATIENT REMAINS INTUBATED, SEDATED. PER BEDSIDE NURSE, HE IS WOUND FREE AT THIS TIME. SKIN/WOUND CARE PLAN UPDATED. RECOMMEND: FREQUENT TURN SCHEDULE Q 2 HOURS, PRN CONDITION PERMITS, WITH PRESSURE REDISTRIBUTION USING PILLOWS/WEDGES, BID/PRN APPLICATION WITH MOISTURE BARRIER CREAM, OPTIFOAM GENTLE SACRAL DRESSING PREVENTATIVE, DIETARY CONSULT FOR INTUBATION STATUS, CONTINUED MONITORING BY WOUND CARE TEAM.
[2020-05-02] MEDS: PANTOPRAZOLE 40 MG/10 ML VIAL INJ IV SCH (10:00)
[2020-05-02] MEDS: LINEZOLID 600MG/300ML 300 ML IV SCH ×2 (10:00→23:05)
--- NOTE | 2020-05-02 10:00 | NUR ---
DR FUNES AT BEDSIDE DISCUSSED PATIENTS STATUS AND PLAN OF CARE, NEW ORDERS RECEIVED
[2020-05-02] MEDS: DexAMETHasone SOD PHOS 10MG/1ML VIAL INJ IV SCH ×2 (10:30→20:50)
[2020-05-02] MEDS: ASCORBIC ACID 1,000 MG TAB PO SCH (10:30)
[2020-05-02] MEDS: ENOXAPARIN SOD 80 MG/0.8ML SYRINGE SC SCH ×2 (10:30→20:50)
[2020-05-02] MEDS: POTASSIUM CHL 10 Meq TABLET PO SCH (10:30)
[2020-05-02] MEDS: SODIUM CHLOR 0.9% PF (SALINE LOCK) 10ML VIAL/SYR IV SCH ×2 (10:30→20:50)
[2020-05-02] MEDS: FUROSEMIDE 40 MG/4 ML VIAL IV SCH (10:30)
[2020-05-02] MEDS: CHOLECALCIFEROL (VITD3) 2,000 UNIT CAP PO SCH (10:30)
[2020-05-02] MEDS: ZINC SULFATE 220mg CAP or TAB PO SCH (10:30)
--- NOTE | 2020-05-02 11:45 | NUR ---
DR HAWKINS AT BEDSIDE DISCUSSED PATIENTS STATUS. NO NEW ORDERS
--- NOTE | 2020-05-02 13:38 | NUR ---
CONSENT FOR ARTERIAL LINE OBTAINED PATIENTS GINNY ALONSO CONSENTED FOR ARTERIAL LINE. CITIZEN OF [place] SPEAKING RN DISCUSSED PATIENTS CURRENT STATUS. ADDRESSED CONCERNS CONSENT VERIFIED WITH 2ND RN
[2020-05-02] MEDS: ATRACURIUM BESYLATE 1,000 MG in D5W 5% 150 ML IV SCH (14:00)
--- NOTE | 2020-05-02 14:00 | NUR ---
PARALYTIC / ARTERIAL LINE PATIENT STARTED ON PARALYTIC PRIOR TO PRONING. DR FUNES AT BEDSIDE TO PLACE ARTERIAL LINE. ARTERIAL LINE PLACED AFTER 2ND ATTEMPTED USING MANAGING MANAGER TO LEFT FEMORAL. SITE DRESSED USING STERILE TECHNIQUE.
--- NOTE | 2020-05-02 15:00 | NUR ---
PRONE PATIENT PRONATED ORDERED BY DR FUNES AT BEDSIDE: DR FUNES, DR HAWKINS 4 RNS AND 2 RESPIRATORY THERAPIST. ALL PRESSURE POINT AREAS COVERED WITH PREVENTATIVE OPTIFOAM. PATIENT PRONED WITHOUT COMPLICATIONS, VITALS REMAINED STABLE ON BEDSIDE MONITOR. WILL CONTINUE TO MONITOR CLOSELY
--- NOTE | 2020-05-02 15:00 | NUR ---
PT WAS PRONE WITH NO INCIDENT REPORTED, ETT TAPED AND SECURED AT 24CM AT THE LIPLINE. SPO2 93%, HR 103, BP 61/53. DR. FUNES AT BEDSIDE. P/F RATIO AT 56.5
--- NOTE | 2020-05-02 15:00 | NUR ---
TOF TRAIN OF FOUR ASSESSED PRIOR TO STARTING PARALYTIC ON RIGHT RADIAL. 4/4 TWITCHES NOTED AT 7MMA
--- NOTE | 2020-05-02 15:22 | NUR ---
Nutrition Followup Notes Pt wt is 63.8 kg Pt is positive for COVID in isolation. Pt is intubated, sedated with propofol @ 19.08 ml/hr providing 504 kcals from lipids. Pt is NPO with no diet order yet. If pt remains NPO for the next 48 hours consider EN nutrition support Glucerna 1.2 @ 60ml/hr goal rate without propofol on board as tolerated and per MD approval. Est energy needs 1186-3434 kcal (25-30 kcal/kg BW 63.5kg) Est protein needs 51-64g (0.8-1g/kg BW 63.5kg) Will monitor and reassess prn. LABS: K 5.6 L, BUN 55 H, CREAT 1.42 H, GLUC 288 H, CA 8.3 L, ALB 2.1 L GI: Pt with no BM today per RN doc BS: 15 mod risk. Refer to wound assessment report for further details PES: Altered nutrition related labs r/t current and chronic medical condition aeb pt with elevated HgbA1c, hyperglycemia, hypoalb Comments Will continue to monitor PO status, skin status, pertinent labs and weight trends. Will f/u in 2-3 days 1) Consider EN nutrition support Glucerna 1.2 @ 60ml/hr goal rate without propofol on board as tolerated and per MD approval. 2) Refer pt to OPD on Dc 3) Continue current plan of care
[2020-05-02] MEDS ORDERED: DEXTROSE (50%) 50ML SYRG IV PRN (16:00)
--- NOTE | 2020-05-02 16:00 | NUR ---
TOF 4/4 TWITCHES ON 7MMA. WILL INCREASE PER PROTOCOL
--- NOTE | 2020-05-02 16:55 | NUR ---
PER DR. FUNES PER ABG RESULTS: DECREASED RR 24, INCREASED PEEP 14
--- NOTE | 2020-05-02 17:00 | NUR ---
TOF 4/4 TWITCHES NOTED ON RIGHT RADIAL ON 7MMA, WILL INCREASE PER PROTOCOL
--- NOTE | 2020-05-02 18:20 | NUR ---
PATIENTS SON CALLED FOR UPDATE PROVIDED PASSWORD, UPDATED ON CURRENT STATUS AND PLAN OF CARE. ADDRESSED QUESTIONS
--- NOTE | 2020-05-02 19:28 | NUR ---
ARTERIAL LINE BLOOD PRESSURES NOT PRINTING FROM PORTABLE MONITOR BLOOD PRESSURES RANGING FROM SBP 100-115 MAP ALL GREATER THAN 65 ON LEVOPHED GTT, CURRENTLY ON 6MCGS
--- NOTE | 2020-05-02 19:45 | NUR ---
Opening Shift Note: Neuro: pupils are unable to be assessed related to prone position; flaccid extremities; no cough/gag. Cardio: NSR 70s; SBPs 100s-120s from right femoral ART line inserted on 05/02/20; pulses all palpable; no edema noted. Resp: patient was intubated on 05/01/20 because his pO2 was 42 on 100% FiO2 with Bipap and increased respiratory distress; lung sounds are diminished throughout; oral secretions are thick/blood tinged/ardon; no ET secretions; patient was proned at 1500 today. GI: OGT clamped; BS present; last BM per report was on 04/27/20. : newton inserted on 05/01/20 for strict I/O: yellow/clear. Skin intact. IVs: right hand 22 g IID inserted on 05/01/20; IV left wrist 22 g IID inserted on 05/01/20; IV RUE PICC inserted on 05/01/20 running propofol @ 50 mcg/kg/min; versed @ 15 mg/hr; Fentanyl @ 200 mcg/hr; atracurium @ 8 with a goal of 2/4 twitches at an MA of 7; levo @ 6. Patient completed Remdesivir treatments; Actemra 05/01 & 04/30; Conv. plasma 04/22 & 04/25. Pending CXR/ABG/BNP/troponin/coags/D-Dimer/mag/CMP/CBC in AM. All COVID precautions in place per protocol. Will continue to round and perform oral care to the best of my ability related to patient in prone position.
--- NOTE | 2020-05-02 20:00 | NUR ---
TOF: 0/4 twitches on MA of 7. Decreased atracurium from 9 to 7 per protocol.
--- NOTE | 2020-05-02 21:00 | NUR ---
TOF: 2/4 twitches obtained on TOF testing/MA 7.Will continue Atracurium rate of 7
[2020-05-02] MEDS: INSULIN LANTUS (GLARGINE) 1 /0.01ml (100units/ml) SC SCH (23:00)
[2020-05-03] VITALS (94 sets, daily range): BP systolic 82–178; BP diastolic 52–98
[2020-05-03] MEDS: NOREPINEPHRINE 8 MG/250ML KIT 250 ML IV SCH (00:11)
[2020-05-03] MEDS: PROPOFOL 100 ML IV SCH ×5 (00:45→21:05)
[2020-05-03] MEDS: PIPERACILLIN-TAZOB 3.375GM 100 ML IV SCH ×4 (01:12→17:47)
[2020-05-03] MEDS: fentaNYL Drip 2500mCg/250mlNS 250 ML IV SCH ×2 (01:12→14:28)
--- NOTE | 2020-05-03 02:00 | NUR ---
TOF: 4/4 twitches at atracurium of 7. Increased to 9 per protocol
[2020-05-03] MEDS: MIDAZOLAM DRIP 50 mg/50mL 50 ML IV SCH ×3 (02:24→21:06)
[2020-05-03] MEDS: InsuLIN REG 1unit/0.01ml Soln (100units/ml) SC SCH ×3 (05:44→17:23)
[2020-05-03] MEDS: ACCU-CHEK COMFORT CURVE STRIP VI SCH ×4 (06:00→17:23)
--- NOTE | 2020-05-03 06:00 | NUR ---
TOF: 2/4 twitches at MA 7 with atracurium @ 9. Will continue rate
[2020-05-03 06:31] LABS: Hematocrit 41.2 % (41.0-53.0)
[2020-05-03 06:35] LABS: Hemoglobin 13.2 g/dL (13.5-17.5); Mean Corpuscular Hemoglobin 24.4 pg (28.0-32.0); Mean Corpuscular Volume 76.2 fL (80.0-100.0); Platelet Count (auto) 245 10^3/uL (140-450); Red Blood Cells 5.41 10^6/uL (4.5-5.90); Red Cell Distribution Width 17.4 % (11.8-14.3); White Blood Cell 13.1 10^3/uL (4.4-10.8)
[2020-05-03 06:47] LABS: Band Neutrophils % (manual) 0; Basophils % (manual) 0 (0.0-2.0); Blast Cells 0; Eosinophils % (manual) 0 (0-7); INR 1.2 (0.9-1.15); Metamyelocytes % 0; Myelocytes % 0; Promyelocytes % 0; Reactive Lymphocytes 0
[2020-05-03 07:12] LABS: Lymphocytes % (manual) 4 (10.0-50.0); Monocytes % (manual) 3 (0-12)
[2020-05-03 07:15] LABS: Anion Gap 8 (5-15); Blood Urea Nitrogen 44 mg/dL (7-18); Calcium 8.1 mg/dL (8.5-10.1); Carbon Dioxide 25 mmol/L (21-32); Chloride 100 mmol/L (98-107); Glucose 314 mg/dL (74-106); Magnesium 2.8 mg/dL (1.6-2.6); Sodium 133 mmol/L (136-145)
--- NOTE | 2020-05-03 07:18 | NUR ---
REPORT RECEIVED FROM SHEARING MACHINE FEEDER RN
[2020-05-03 07:24] LABS: Alanine Aminotransferase 211 U/L (16-61); Alkaline Phosphatase 116 U/L (45-117); Aspartate Aminotransferase 134 U/L (15-37); BUN/Creatinine Ratio 36.4; Bilirubin, Total 0.5 mg/dL (0.2-1.0); GFR African American 79 mL/min; GFR Non-African American 65 mL/min; Total Protein 6.5 g/dL (6.4-8.2)
[2020-05-03 07:37] LABS: Potassium 5.3 mmol/L (3.5-5.1)
[2020-05-03] MEDS: BUDESONIDE (INHALATION) 0.5 MG/2 ML NEB NEB SCH ×2 (08:46→20:34)
[2020-05-03] MEDS: ALBUTEROL SULF 2.5 MG/0.5ML(0.5%) NEB SOLN NEB SCH ×3 (08:46→20:35)
[2020-05-03] MEDS: FUROSEMIDE 40 MG/4 ML VIAL IV SCH ×2 (09:41→17:47)
[2020-05-03] MEDS: PANTOPRAZOLE 40 MG/10 ML VIAL INJ IV SCH (09:41)
[2020-05-03] MEDS: DexAMETHasone SOD PHOS 10MG/1ML VIAL INJ IV SCH ×2 (09:41→22:00)
[2020-05-03] MEDS: ASCORBIC ACID 1,000 MG TAB PO SCH (09:42)
[2020-05-03] MEDS: SODIUM CHLOR 0.9% PF (SALINE LOCK) 10ML VIAL/SYR IV SCH ×2 (09:42→21:04)
[2020-05-03] MEDS: CHOLECALCIFEROL (VITD3) 2,000 UNIT CAP PO SCH (09:42)
[2020-05-03] MEDS: ENOXAPARIN SOD 80 MG/0.8ML SYRINGE SC SCH ×2 (09:42→22:00)
[2020-05-03] MEDS: ZINC SULFATE 220mg CAP or TAB PO SCH (09:42)
--- NOTE | 2020-05-03 10:17 | NUR ---
DR. HAWKINS ON UNIT
--- NOTE | 2020-05-03 10:47 | NUR ---
PATIENT PLACED IN SUPINE POSITION WITH NO DISTRESS NOTED
[2020-05-03] MEDS: LINEZOLID 600MG/300ML 300 ML IV SCH ×2 (10:48→22:00)
--- NOTE | 2020-05-03 12:00 | NUR ---
FAMILY SON UPDATED ON PATIENT STATUS WITH SUPERVISOR CYTOLOGY EFREN DANG. ALL QUESTIONS AND CONCERNS ADDRESSED AT THIS TIME
[2020-05-03] MEDS: ATRACURIUM BESYLATE 1,000 MG in D5W 5% 150 ML IV SCH ×2 (13:45→16:24)
--- NOTE | 2020-05-03 14:27 | NUR ---
NOTIFIED OF CXR RESULTS
--- NOTE | 2020-05-03 14:36 | NUR ---
DR. VOSS PAGED REGARDING CXR
--- NOTE | 2020-05-03 16:01 | NUR ---
PATIENT PLACED IN PRONE POSITION
--- NOTE | 2020-05-03 19:20 | NUR ---
Respiratory note: RECEIVED PT IN PRONE POSITION, DONE BY DAYSHIFT RT ROE. ET TUBE NAIDU WAS NOT CHANGED FROM DIEGO TO TAPE BY RT JYOTHI, PT WITH DIEGO. SKIN ASSESSED, NO BREAKDOWN SEEN, WILL CONTINUE TO MONITOR SKIN INTEGRITY, RN MADE AWARE. PT SET UP WITH PRONE PILLOW, VENT CIRCUIT CHECKED TO ENSURE ALL CONNECTIONS ARE SECURED AND NO TENSION PULLING ON VENT CIRCUIT OR ET TUBE. ADEQUATE VOLUMES NOTED. PT SPO2 NOTED AT 89% ON CURRENT VENT SETTINGS. WILL FOLLOW UP WITH PHYSICIAN TO REQUEST BLOOD GAS TO EVALUATE VENTILATION/OXYGENATION STATUS. PT HAS A-LINE ACCESS.
--- NOTE | 2020-05-03 19:34 | NUR ---
Call from Dr. Fontaine: STAT ABG per physician related to s/p proning. Current oxygen saturation is 89%. RT to call physician with ABG results.
--- NOTE | 2020-05-03 19:45 | NUR ---
Opening Shift Note: Neuro: pupils are unable to be assessed related to prone position; flaccid extremities; no cough/gag. Cardio: NSR 90s; SBPs 100s-120s from right femoral ART line inserted on 05/02/20; pulses all palpable; no edema noted. Resp: patient was intubated on 05/01/20 because his pO2 was 42 on 100% FiO2 with Bipap and increased respiratory distress; lung sounds are clear posterior throughout; oral secretions are thick/blood tinged/ardon; no ET secretions; patient was proned at 1600 today. GI: OGT clamped; BS present; last BM per report was on 04/27/20. : newton inserted on 05/01/20 for strict I/O: yellow/sediment. Skin intact. IVs: right hand 22 g IID inserted on 05/01/20; IV left wrist 22 g IID inserted on 05/01/20; IV RUE PICC inserted on 05/01/20 running propofol @ 50 mcg/kg/min; versed @ 15 mg/hr; Fentanyl @ 200 mcg/hr; atracurium @ 5 with a goal of 2/4 twitches at an MA of 7; levo @ 4. Patient completed Remdesivir treatments; Actemra 05/01 & 04/30; Conv. plasma 04/22 & 04/25. Pending CXR/ABG/CMP/CBC in AM. All COVID precautions in place per protocol. Will continue to round and perform oral care to the best of my ability related to patient in prone position.
--- NOTE | 2020-05-03 19:53 | NUR ---
Respiratory note: S/P PRONE ABG RESULTS REPORTED TO DR. HAWKINS VIA TELEPHONE. REVIEWED MOST RECENT RADIOLOGY REPORT WITH DR. HAWKINS, NOTIFIED HER OF CURRENT VENT SETTINGS AND PRESSURES. PT HAS SUBCUTANEOUS EMPHYSEMA IN NECK AND CHEST AREA, CONFIRMED AT BEDSIDE WHILE OBTAINING ABG, PHYSICIAN MADE AWARE. DR. HAWKINS ALSO IN CONTACT WITH DR. FUNES AT THIS TIME. MY CONTACT INFO GIVEN TO DR. HAWKINS SHE WOULD LIKE TO REVIEW THIS WITH DR. FUNES, WILL CONTINUE TO MONITOR.
--- NOTE | 2020-05-03 20:05 | NUR ---
Call from Dr. Fontaine taken by slab tripper: Obtain STAT CXR to check ET tube placement. and Ingrid consulting; Ingrid will call RT for possible vent changes.
--- NOTE | 2020-05-03 20:45 | NUR ---
Respiratory note: CHEST XRAY REVIEWED WITH RN. ET TUBE IN STABLE POSITION S/P PRONE POSITIONING.
--- NOTE | 2020-05-03 21:26 | NUR ---
ABG redraw by RT completed at this time.
--- NOTE | 2020-05-03 21:30 | NUR ---
Respiratory note: ABG REDRAWN FROM A-LINE AT THIS TIME. RESULTS REPORTED THE SAME PREVIOUS BLOOD GAS.
--- NOTE | 2020-05-03 21:32 | NUR ---
Respiratory note: NEW VENT ORDERS RECEIVED FROM DR. HAWKINS, DECREASED INSP. PRESSURE TO 26. VENT ORDERS FOLLOWED: PCV RR 24, PIP 26, PEEP +14, I-TIME 1.0, 100% FIO2. PT REMAINS IN PRONE POSITION AT THIS TIME. REPEAT ABG IN AM PER DR. HAWKINS. WILL CONTINUE TO MONITOR.
[2020-05-03] MEDS: INSULIN LANTUS (GLARGINE) 1 /0.01ml (100units/ml) SC SCH (22:00)
[2020-05-04] VITALS (87 sets, daily range): BP systolic 84–132; BP diastolic 51–78
[2020-05-04 04:28] LABS: Eosinophils # (auto) 0 10 ^3/uL (0-0.8); Lymphocytes # (auto) 0.3 10 ^3/uL (0.4-5.4); Lymphocytes % (auto) 1.5 % (10.0-50.0)
[2020-05-04 04:30] LABS: Basophils # (auto) 0.1 10 ^3/uL (0-0.2); Basophils % (auto) 0.3 % (0.0-2.0); Hematocrit 45.6 % (41.0-53.0); Hemoglobin 14.4 g/dL (13.5-17.5); Mean Corpuscular Hemoglobin 24.4 pg (28.0-32.0); Mean Corpuscular Hgb Conc. 31.5 g/dL (32.0-36.0); Mean Corpuscular Volume 77.3 fL (80.0-100.0); Monocytes # (auto) 0.7 10 ^3/uL (0-1.3); Monocytes % (auto) 3.3 % (0.0-12.0); Neutrophils # (auto) 20.7 10 ^3/uL (1.6-8.6); Neutrophils % (auto) 94.9 % (37.0-80.0); Nucleated Red Blood Cells % 0.1 %; Platelet Count (auto) 166 10^3/uL (140-450); Red Cell Distribution Width 17.2 % (11.8-14.3); White Blood Cell 21.8 10^3/uL (4.4-10.8)
[2020-05-04 04:41] LABS: Potassium 4.6 mmol/L (3.5-5.1)
[2020-05-04 04:49] LABS: Albumin 2.2 g/dL (3.4-5.0); BUN/Creatinine Ratio 29.4; Bilirubin, Total 0.6 mg/dL (0.2-1.0); Calcium 8.1 mg/dL (8.5-10.1); Total Protein 6.5 g/dL (6.4-8.2)
--- NOTE | 2020-05-04 05:27 | NUR ---
CXR to be completed when patient is supine; currently prone. certified veterinary technician notified.
[2020-05-04] MEDS: PIPERACILLIN-TAZOB 3.375GM 100 ML IV SCH ×4 (05:30→17:24)
[2020-05-04] MEDS: InsuLIN REG 1unit/0.01ml Soln (100units/ml) SC SCH ×5 (06:00→23:19)
[2020-05-04] MEDS: ACCU-CHEK COMFORT CURVE STRIP VI SCH ×5 (06:00→23:19)
[2020-05-04] MEDS: FUROSEMIDE 40 MG/4 ML VIAL IV SCH ×2 (06:02→18:15)
--- NOTE | 2020-05-04 07:07 | NUR ---
REPORT RECEIVED FROM MULTIPLE EFFECT EVAPORATOR OPERATOR RN
[2020-05-04] MEDS: NOREPINEPHRINE 8 MG/250ML KIT 250 ML IV SCH (07:12)
--- NOTE | 2020-05-04 07:17 | NUR ---
REPORT RECEIVED FROM STOCK SORTER RN
[2020-05-04] MEDS: BUDESONIDE (INHALATION) 0.5 MG/2 ML NEB NEB SCH ×2 (07:53→21:35)
[2020-05-04] MEDS: ALBUTEROL SULF 2.5 MG/0.5ML(0.5%) NEB SOLN NEB SCH ×3 (07:53→21:35)
[2020-05-04] MEDS: LINEZOLID 600MG/300ML 300 ML IV SCH ×2 (08:43→22:00)
[2020-05-04] MEDS: MIDAZOLAM DRIP 50 mg/50mL 50 ML IV SCH ×2 (08:43→15:34)
[2020-05-04] MEDS: SODIUM CHLOR 0.9% PF (SALINE LOCK) 10ML VIAL/SYR IV SCH ×2 (09:25→22:00)
[2020-05-04] MEDS: DexAMETHasone SOD PHOS 10MG/1ML VIAL INJ IV SCH ×2 (09:25→22:00)
[2020-05-04] MEDS: PANTOPRAZOLE 40 MG/10 ML VIAL INJ IV SCH (09:25)
[2020-05-04] MEDS: CHOLECALCIFEROL (VITD3) 2,000 UNIT CAP PO SCH (09:26)
[2020-05-04] MEDS: ZINC SULFATE 220mg CAP or TAB PO SCH (09:26)
[2020-05-04] MEDS: ASCORBIC ACID 1,000 MG TAB PO SCH (09:26)
--- NOTE | 2020-05-04 10:56 | NUR ---
Nutrition Followup Notes Pt wt is 63.8 kg Pt is positive for COVID in isolation. Pt is intubated, sedated with propofol @ 19.08 ml/hr providing 504 kcals from lipids. Pt is NPO with no diet order yet. Est energy needs 8085-7514 kcal (25-30 kcal/kg BW 63.5kg), Est protein needs 51-64g (0.8-1g/kg BW 63.5kg). Will monitor and reassess prn. LABS: BUN 47 H CREAT 1.60 H GLU 245 H CA 8.1 L ALB 2.2 L GI: Pt with no BM today per RN doc BS: 10 high risk. Refer to wound assessment report for further details PES: Altered nutrition related labs r/t current and chronic medical condition aeb pt with elevated HgbA1c, hyperglycemia, hypoalb Comments: Will continue to monitor NPO status, skin status, pertinent labs and weight trends. Will f/u in 2-3 days 1) Consider EN nutrition support Glucerna 1.2 @ 60ml/hr goal rate without propofol on board as tolerated and per MD approval. 2) Refer pt to OPD on Dc. 3) Advance diet as medically feasible. 4) Continue current plan of care
--- NOTE | 2020-05-04 11:32 | NUR ---
PT IS SUPINE AT BEDSIDE WITH RN RIP AND CCT ANGELICA TO TURN PT BACK INTO SUPINE POSITION, DR. HAWKINS SUPERVISING OUTSIDE THE DOOR. PT PLACED INTO SUPINE WITHOUT INCIDENT. SKIN CHECK COMPLETED, NOTED MILD BREAKDOWN ON BOTTOM RIGHT LIP. REPOSITIONED ETT TO CENTER. SUCTIONED FOR SCANT THIN CLEAR. ALARMS VERIFIED AND AUDIBLE. ABG TO FOLLOW IN ONE HOUR.
--- NOTE | 2020-05-04 11:47 | NUR ---
PATIENT PLACED BACK IN SUPINE POSITION PATIENT TOLERATED WELL
[2020-05-04] MEDS: ENOXAPARIN SOD 80 MG/0.8ML SYRINGE SC SCH ×2 (12:07→22:00)
--- NOTE | 2020-05-04 12:39 | NUR ---
Follow-up ABG reported to Dr. Fontaine
--- NOTE | 2020-05-04 13:30 | NUR ---
X RAY AT BEDSIDE
--- NOTE | 2020-05-04 14:45 | NUR ---
Paged for Dr. Fontaine, awaiting call back
--- NOTE | 2020-05-04 15:40 | NUR ---
DR. CRANDALL AT BEDSIDE
[2020-05-04] MEDS: fentaNYL Drip 2500mCg/250mlNS 250 ML IV SCH (16:24)
--- NOTE | 2020-05-04 19:00 | NUR ---
Opening shift note: Primary RN received report on patient. Patient intubated ETT 7.5/ 24CM @ LL, Vent settings: Pressor control; Pressure of 26, Rate 24 FIO2 100%/ PEEP 14, O2 SAT 94%. Right upper arm TLC PICC line running Versed, Fent, Levo and Prop. OG tube in place and clamped, placement checked. Vora catheter draining via gravity with yellow urine. Rectal temp probe in place. Safety precautions in place. RN will continue to monitor. Patient on isolation for COVID-19.
--- NOTE | 2020-05-04 21:20 | NUR ---
Family called: Patient's son called. Password was verified. Family updated on patient condition. All questions answered.
[2020-05-04] MEDS: INSULIN LANTUS (GLARGINE) 1 /0.01ml (100units/ml) SC SCH (22:00)
[2020-05-05] VITALS (80 sets, daily range): BP systolic 73–148; BP diastolic 41–89
--- NOTE | 2020-05-05 00:02 | NUR ---
Respiratory note: VENT SETTINGS CHANGED TO PC RATE 30, INSPIRATORY PRESSURE 22, PEEP 12 DUE TO INCREASING SUBQ EMPHYSEMA AND PREVIOUS ABG RESULTS. PT TOLERATING WELL. EFREN MCDANIEL MADE AWARE OF CHANGES. WILL CONTINUE TO MONITOR.
--- NOTE | 2020-05-05 00:30 | NUR ---
Elevated temp: Patient noted with a elevated temp of 102.4. RN provided cooling measures and placed cooling blanket under patient. RN will continue to monitor and assess patient.
--- NOTE | 2020-05-05 02:00 | NUR ---
Temp Reassessed: Patient's temp now noted to be 98.9. Cooling measures noted to be effective.
--- NOTE | 2020-05-05 02:30 | NUR ---
Cooling measures stopped. Temp now reading 98.4. Cooling measures have been stopped.
--- NOTE | 2020-05-05 04:00 | NUR ---
Low temp. Patient now noted with a low temp of 96.1. Warming measures being provided to patient. Warming blanket placed on patient and warm blanket as well. RN will continue to monitor and assess patient.
[2020-05-05 04:29] LABS: Basophils # (auto) 0 10 ^3/uL (0-0.2); Basophils % (auto) 0.1 % (0.0-2.0); Eosinophils # (auto) 0 10 ^3/uL (0-0.8); Hemoglobin 14.4 g/dL (13.5-17.5); Monocytes # (auto) 0.9 10 ^3/uL (0-1.3); Nucleated Red Blood Cells % 0.1 %
[2020-05-05 04:33] LABS: Hematocrit 45.2 % (41.0-53.0); Lymphocytes # (auto) 0.5 10 ^3/uL (0.4-5.4); Lymphocytes % (auto) 2.3 % (10.0-50.0); Mean Corpuscular Hemoglobin 24.6 pg (28.0-32.0); Mean Corpuscular Hgb Conc. 31.8 g/dL (32.0-36.0); Mean Corpuscular Volume 77.3 fL (80.0-100.0); Monocytes % (auto) 4.4 % (0.0-12.0); Neutrophils # (auto) 19.5 10 ^3/uL (1.6-8.6); Neutrophils % (auto) 93.2 % (37.0-80.0); Platelet Count (auto) 154 10^3/uL (140-450); Red Blood Cells 5.85 10^6/uL (4.5-5.90); Red Cell Distribution Width 17.9 % (11.8-14.3); White Blood Cell 20.9 10^3/uL (4.4-10.8)
[2020-05-05 04:43] LABS: Potassium 4.1 mmol/L (3.5-5.1)
[2020-05-05 04:49] LABS: Albumin 2.1 g/dL (3.4-5.0); BUN/Creatinine Ratio 31.7; Bilirubin, Total 0.5 mg/dL (0.2-1.0)
[2020-05-05] MEDS: InsuLIN REG 1unit/0.01ml Soln (100units/ml) SC SCH ×4 (05:21→23:13)
[2020-05-05] MEDS: PIPERACILLIN-TAZOB 3.375GM 100 ML IV SCH ×2 (05:21)
[2020-05-05] MEDS: FUROSEMIDE 40 MG/4 ML VIAL IV SCH ×2 (05:21→18:13)
[2020-05-05] MEDS: ACCU-CHEK COMFORT CURVE STRIP VI SCH ×4 (05:22→23:13)
[2020-05-05] MEDS: BUDESONIDE (INHALATION) 0.5 MG/2 ML NEB NEB SCH ×2 (07:35→22:21)
[2020-05-05] MEDS: ALBUTEROL SULF 2.5 MG/0.5ML(0.5%) NEB SOLN NEB SCH ×3 (07:35→22:21)
[2020-05-05] MEDS: MIDAZOLAM DRIP 50 mg/50mL 50 ML IV SCH ×2 (08:09→11:45)
[2020-05-05] MEDS: DexAMETHasone SOD PHOS 10MG/1ML VIAL INJ IV SCH ×2 (10:30→22:00)
[2020-05-05] MEDS: CHOLECALCIFEROL (VITD3) 2,000 UNIT CAP PO SCH (10:30)
[2020-05-05] MEDS: PANTOPRAZOLE 40 MG/10 ML VIAL INJ IV SCH (10:30)
[2020-05-05] MEDS: ENOXAPARIN SOD 80 MG/0.8ML SYRINGE SC SCH ×2 (10:30→22:00)
[2020-05-05] MEDS: ZINC SULFATE 220mg CAP or TAB PO SCH (10:30)
[2020-05-05] MEDS: ASCORBIC ACID 1,000 MG TAB PO SCH (10:30)
[2020-05-05] MEDS: SODIUM CHLOR 0.9% PF (SALINE LOCK) 10ML VIAL/SYR IV SCH ×2 (10:30→22:00)
[2020-05-05] MEDS: PROPOFOL 100 ML IV SCH ×2 (10:41→15:09)
--- NOTE | 2020-05-05 11:30 | NUR ---
DR HAWKINS AT BEDSIDE DISCUSSED PATIENTS STATUS AND PLAN OF CARE. NEW ORDERS RECEIVED
--- NOTE | 2020-05-05 11:41 | NUR ---
DR FUNES AT BEDSIDE DISCUSSED PATIENTS STATUS. NEW ORDERS FOR VENT RECEIVED
[2020-05-05] MEDS: LINEZOLID 600MG/300ML 300 ML IV SCH ×2 (13:04→22:00)
[2020-05-05] MEDS ORDERED: MEROPENEM 1GM IVPB 100 ML IV ONE (14:30)
[2020-05-05] MEDS: FLUCONAZOLE 200MG/100ML 100 ML IV SCH ×2 (15:09→16:15)
[2020-05-05] MEDS: METOCLOPRAMIDE HCL 5MG/ml INJ 2ml VIAL IV SCH ×2 (15:09→22:00)
--- NOTE | 2020-05-05 16:40 | NUR ---
DR EDUARDO AT BEDSIDE DISCUSSED PATIENTS STATUS AND PLAN OF CARE
[2020-05-05] MEDS: NOREPINEPHRINE 8 MG/250ML KIT 250 ML IV SCH (18:05)
--- NOTE | 2020-05-05 19:00 | NUR ---
Opening shift note: Report received from day shift RN. Resumed care of patient.
[2020-05-05 19:24] LABS: Creatinine, Urine 63 mg/dL (30.0-125.0); Sodium Urine < 5 mmol/L (40-220)
[2020-05-05] MEDS: INSULIN LANTUS (GLARGINE) 1 /0.01ml (100units/ml) SC SCH (22:00)
--- NOTE | 2020-05-05 22:20 | NUR ---
Family: RN received call from family. RN spoke with patient's Son "Wesley". RN updated family on POC and patient condition. Family is primarily [place] speaking. RN spoke to family in [place] and had a long discussion with family regarding patients code status. Family stated they spoke with MD about it earlier in the day but were unclear due to language barrier. RN provided information on DNR status and updated them on patients condition. Per family, they will talk about patients code status tonight and let medical staff know their decision in the morning. Family very emotional at this time but RN provided comfort and support over the phone.
[2020-05-06] VITALS (92 sets, daily range): BP systolic 78–140; BP diastolic 43–74
--- NOTE | 2020-05-06 | NUR ---
Full bed linen change provided. RN provided full bed linen change and opti-foam to sacrum was changed. Patient repositioned for comfort. Patient currently with a temp of 97.0. Warming blanket (Bear Hugger) is currently on patient. RN will continue to monitor and assess patient.
--- NOTE | 2020-05-06 00:14 | NUR ---
IV's D/C'd: RN discontinued both IV's to Right hand and to Left wrist. Catheters fully intact. Patient tolerated intervention well.
[2020-05-06] MEDS: MEROPENEM 1GM IVPB 100 ML IV SCH ×2 (02:00→17:00)
[2020-05-06 04:48] LABS: Eosinophils # (auto) 0 10 ^3/uL (0-0.8); Hemoglobin 14.1 g/dL (13.5-17.5); Lymphocytes # (auto) 0.4 10 ^3/uL (0.4-5.4); Lymphocytes % (auto) 1.6 % (10.0-50.0); Red Cell Distribution Width 17.7 % (11.8-14.3)
[2020-05-06 04:51] LABS: Basophils # (auto) 0.2 10 ^3/uL (0-0.2); Mean Corpuscular Hemoglobin 24.7 pg (28.0-32.0); Mean Corpuscular Hgb Conc. 31.3 g/dL (32.0-36.0); Mean Corpuscular Volume 78.7 fL (80.0-100.0); Monocytes % (auto) 4.1 % (0.0-12.0); Neutrophils # (auto) 22.6 10 ^3/uL (1.6-8.6); Neutrophils % (auto) 93.3 % (37.0-80.0); Nucleated Red Blood Cells % 0.1 %; Platelet Count (auto) 135 10^3/uL (140-450); Red Blood Cells 5.72 10^6/uL (4.5-5.90); White Blood Cell 24.2 10^3/uL (4.4-10.8)
[2020-05-06] MEDS: InsuLIN REG 1unit/0.01ml Soln (100units/ml) SC SCH ×4 (05:02→23:44)
[2020-05-06 05:03] LABS: INR 1.15 (0.9-1.15)
[2020-05-06] MEDS: ACCU-CHEK COMFORT CURVE STRIP VI SCH ×4 (05:03→23:44)
[2020-05-06 05:06] LABS: Albumin 2.2 g/dL (3.4-5.0); Calcium 8.1 mg/dL (8.5-10.1); Potassium 4.8 mmol/L (3.5-5.1)
[2020-05-06 05:07] LABS: Lactic Acid w/Reflex 6.9 mmol/L (0.4-2.0)
[2020-05-06 05:10] LABS: BUN/Creatinine Ratio 33.1; Bilirubin, Total 0.6 mg/dL (0.2-1.0); CRP High Sensitivity 0.2 mg/dL (< 0.3); Total Protein 5.7 g/dL (6.4-8.2)
[2020-05-06] MEDS: FUROSEMIDE 40 MG/4 ML VIAL IV SCH ×2 (06:00→18:00)
[2020-05-06] MEDS: ALBUTEROL SULF 2.5 MG/0.5ML(0.5%) NEB SOLN NEB SCH ×2 (06:00→18:43)
[2020-05-06] MEDS: METOCLOPRAMIDE HCL 5MG/ml INJ 2ml VIAL IV SCH ×3 (06:00→22:00)
[2020-05-06] MEDS: DOPamine 1600MCG/ML D5W 250 ML IV SCH (09:45)
[2020-05-06] MEDS: SODIUM BICARB 50ML SYR 75 ML in SOD CHL 0.45% 1,000 ML IV SCH ×2 (09:45→22:00)
[2020-05-06] MEDS: LINEZOLID 600MG/300ML 300 ML IV SCH ×2 (10:00→22:00)
[2020-05-06] MEDS: ENOXAPARIN SOD 80 MG/0.8ML SYRINGE SC SCH (10:00)
--- NOTE | 2020-05-06 10:00 | NUR ---
DOPAMINE STOPPED PATIENT STARTED ON DOPAMINE ORDERED, WITHIN 15 MINUTES PATIENT BECAME TACHYCARDIC (HEART RATE 140-150S) AND BLOOD PRESSURE SBP 104S. DOPAMINE STOPPED. WILL NOTIFY
[2020-05-06] MEDS: BUDESONIDE (INHALATION) 0.5 MG/2 ML NEB NEB SCH ×2 (10:05→18:43)
[2020-05-06] MEDS: PANTOPRAZOLE 40 MG/10 ML VIAL INJ IV SCH (10:15)
[2020-05-06] MEDS: SODIUM CHLOR 0.9% PF (SALINE LOCK) 10ML VIAL/SYR IV SCH ×2 (10:15→22:00)
[2020-05-06] MEDS: ASCORBIC ACID 1,000 MG TAB PO SCH (10:15)
[2020-05-06] MEDS: CHOLECALCIFEROL (VITD3) 2,000 UNIT CAP PO SCH (10:15)
[2020-05-06] MEDS: DexAMETHasone SOD PHOS 10MG/1ML VIAL INJ IV SCH ×2 (10:15→22:00)
[2020-05-06] MEDS: ZINC SULFATE 220mg CAP or TAB PO SCH (10:15)
--- NOTE | 2020-05-06 10:30 | NUR ---
DR MARIN Sanchez BEDSIDE DISCUSSED PATIENTS STATUS AND PLAN OF CARE, RECEIVED ORDERS
--- NOTE | 2020-05-06 11:45 | NUR ---
DR HAWKINS AT BEDSIDE DISCUSSED PATIENTS STATUS, PER DR HAWKINS SHE DISCUSSED CODE STATUS WITH PATIENTS SON YESTERDAY. PATIENT IS CURRENTLY FULL CODE
--- NOTE | 2020-05-06 11:58 | NUR ---
DR EDUARDO AT BEDSIDE DISCUSSED PATIENTS STATUS, UPDATED MD ABOUT PATIENT NOT TOLERATING DOPAMINE GTT ORDERED. NO NEW ORDERS AT THIS TIME
[2020-05-06] MEDS: MIDAZOLAM DRIP 50 mg/50mL 50 ML IV SCH ×2 (12:37→18:02)
--- NOTE | 2020-05-06 13:30 | NUR ---
CALLED PATIENTS SON, GAVIN TO UPDATE DECLINING STATUS ENGLISH SPEAKING RN ABLE TO COMMUNICATE WITH GAVIN EXPLAINING PATIENTS CURRENT HEMODYNAMICS. HE STATED HE WOULD COMMUNICATE WITH HIS MOM (PATIENTS ) AND SEE WHAT WISHES ARE AND INFORM HOSPITAL
[2020-05-06] MEDS: FLUCONAZOLE 200MG/100ML 100 ML IV SCH ×2 (14:06→14:44)
--- NOTE | 2020-05-06 14:42 | NUR ---
Nutrition Followup Notes Pt wt is 64.7 kg Pt is positive for COVID in isolation. Pt is intubated, sedated with propofol @ 19.08 ml/hr providing 504 kcals from lipids. Pt continues to be NPO with no alternate nutrition, consider starting pt on TF or TPN when medically feasible Est energy needs 6240-8445 kcal (25-30 kcal/kg BW 63.5kg), Est protein needs 51-64g (0.8-1g/kg BW 63.5kg). Will monitor and reassess prn. LABS: Na 132L, Alb 2.2L, CO2 19L, BUN 85H, Creat 2.57H, Ca 8.1L, GLUC 257H GI: Pt with no BM today per RN doc BS: 10 high risk. Refer to wound assessment report for further details PES: Altered nutrition related labs r/t current and chronic medical condition aeb pt with elevated HgbA1c, hyperglycemia, hypoalb Comments: Will continue to monitor NPO status, skin status, pertinent labs and weight trends. Will f/u in 2-3 days 1) Consider EN nutrition support Glucerna 1.2 @ 60ml/hr goal rate without propofol on board as tolerated and per MD approval. 2) Refer pt to OPD on Dc. 3) Advance diet as medically feasible. 4) Continue current plan of care
[2020-05-06] MEDS: NOREPINEPHRINE 8 MG/250ML KIT 250 ML IV SCH (14:45)
[2020-05-06] MEDS: PROPOFOL 100 ML IV SCH (14:55)
--- NOTE | 2020-05-06 17:00 | NUR ---
CODE STATUS CHANGE- DNR MD SPOKE WITH PATIENTS SONGAVIN REGARDING PATIENTS DECLINING STATUS. FAMILY MADE PATIENT DNR. RN CALLED AND VERIFIED WITH 2ND RN TO CONFIRM FAMILY'S WISHES
[2020-05-06] MEDS: fentaNYL Drip 2500mCg/250mlNS 250 ML IV SCH (18:35)
--- NOTE | 2020-05-06 19:00 | NUR ---
Opening shift note: Report received from day shift RN. Resumed care of patient.
[2020-05-06] MEDS: INSULIN LANTUS (GLARGINE) 1 /0.01ml (100units/ml) SC SCH (22:00)
--- NOTE | 2020-05-06 22:30 | NUR ---
Family called: Patient's son called. Password was verified. Family updated on patient condition. All questions answered.
[2020-05-07] VITALS (85 sets, daily range): BP systolic 79–132; BP diastolic 41–63
[2020-05-07] MEDS: MEROPENEM 1GM IVPB 100 ML IV SCH ×2 (02:00→15:00)
--- NOTE | 2020-05-07 02:30 | NUR ---
Full bed linen change provided. RN provided full bed linen change. Patient repositioned for comfort.
[2020-05-07] MEDS: InsuLIN REG 1unit/0.01ml Soln (100units/ml) SC SCH ×4 (05:10→23:28)
[2020-05-07] MEDS: ACCU-CHEK COMFORT CURVE STRIP VI SCH ×4 (05:10→23:28)
[2020-05-07] MEDS: PHENYLEPHRINE IV 250 ML IV SCH ×4 (05:15→21:00)
[2020-05-07] MEDS: FUROSEMIDE 40 MG/4 ML VIAL IV SCH ×2 (05:39→18:17)
[2020-05-07] MEDS: METOCLOPRAMIDE HCL 5MG/ml INJ 2ml VIAL IV SCH ×3 (05:40→21:35)
--- NOTE | 2020-05-07 05:40 | NUR ---
RN received call from lab regarding patients blood results. Per lab, patients blood hemolyzed and needs to be redrawn.
[2020-05-07 06:43] LABS: Calcium 7.4 mg/dL (8.5-10.1); Potassium 5.2 mmol/L (3.5-5.1)
[2020-05-07 06:45] LABS: BUN/Creatinine Ratio 25.1
[2020-05-07] MEDS: DOPamine 1600MCG/ML D5W 250 ML IV SCH (07:30)
[2020-05-07] MEDS: PROPOFOL 100 ML IV SCH ×3 (08:00→15:00)
[2020-05-07] MEDS: ALBUTEROL SULF 2.5 MG/0.5ML(0.5%) NEB SOLN NEB SCH ×2 (08:05→19:40)
[2020-05-07] MEDS: BUDESONIDE (INHALATION) 0.5 MG/2 ML NEB NEB SCH ×2 (08:05→19:40)
--- NOTE | 2020-05-07 09:00 | NUR ---
DR FUNES AT BEDSIDE NO NEW ORDERS
[2020-05-07] MEDS: FLUCONAZOLE 200MG/100ML 100 ML IV SCH ×2 (09:45→10:41)
[2020-05-07] MEDS: ENOXAPARIN SOD 60 MG/0.6 ML SYRINGE SC SCH (10:00)
[2020-05-07] MEDS: CHOLECALCIFEROL (VITD3) 2,000 UNIT CAP PO SCH (10:00)
[2020-05-07] MEDS: ZINC SULFATE 220mg CAP or TAB PO SCH (10:00)
[2020-05-07] MEDS: SODIUM CHLOR 0.9% PF (SALINE LOCK) 10ML VIAL/SYR IV SCH ×2 (10:00→21:25)
[2020-05-07] MEDS: LINEZOLID 600MG/300ML 300 ML IV SCH (10:00)
[2020-05-07] MEDS: ASCORBIC ACID 1,000 MG TAB PO SCH (10:00)
[2020-05-07] MEDS: DexAMETHasone SOD PHOS 10MG/1ML VIAL INJ IV SCH (10:30)
[2020-05-07] MEDS: PANTOPRAZOLE 40 MG/10 ML VIAL INJ IV SCH (10:30)
--- NOTE | 2020-05-07 10:48 | NUR ---
DR EDUARDO AT BEDSIDE DISCUSSED PATIENTS STATUS AND NEW ORDERS PLACED
--- NOTE | 2020-05-07 11:00 | NUR ---
DR HAWKINS AT BEDSIDE DISCUSSED PATIENTS DECLINING STATUS
--- NOTE | 2020-05-07 11:30 | NUR ---
CLUB MANAGER AT BEDSIDE
[2020-05-07] MEDS: SODIUM BICARBONATE 50ML VIAL 150 ML in D5W 5% 1,000 ML IV SCH ×2 (12:45→22:00)
[2020-05-07] MEDS: MIDAZOLAM DRIP 50 mg/50mL 50 ML IV SCH (13:00)
[2020-05-07] MEDS ORDERED: SODIUM ZIRCONIUM CYCL 10 GM PAK PO ONE (14:30)
[2020-05-07] MEDS: NOREPINEPHRINE 8 MG/250ML KIT 250 ML IV SCH (14:45)
[2020-05-07] MEDS: fentaNYL Drip 2500mCg/250mlNS 250 ML IV SCH (17:32)
--- NOTE | 2020-05-07 19:00 | NUR ---
Opening shift note: Report received from day shift RN. Resumed care of patient.
--- NOTE | 2020-05-07 21:00 | NUR ---
Family called: Patient's son called. Password was verified. Family updated on patient condition. All questions answered.
[2020-05-07] MEDS: INSULIN LANTUS (GLARGINE) 1 /0.01ml (100units/ml) SC SCH (22:00)
[2020-05-07] MEDS ORDERED: SODIUM BICARBONATE 8.4 % INJ 50ML VIAL IV ONE (22:34)
[2020-05-08] VITALS (64 sets, daily range): BP systolic 81–110; BP diastolic 35–51
[2020-05-08] MEDS: MEROPENEM 1GM IVPB 100 ML IV SCH ×2 (02:00→13:16)
[2020-05-08 04:37] LABS: Mean Corpuscular Volume 80.8 fL (80.0-100.0); Red Cell Distribution Width 17.9 % (11.8-14.3)
[2020-05-08 04:42] LABS: Hematocrit 42.5 % (41.0-53.0); Hemoglobin 13.6 g/dL (13.5-17.5); Mean Corpuscular Hemoglobin 25.8 pg (28.0-32.0); Platelet Count (auto) 248 10^3/uL (140-450); Red Blood Cells 5.26 10^6/uL (4.5-5.90)
[2020-05-08 04:50] LABS: INR 1.48 (0.9-1.15)
[2020-05-08] MEDS: InsuLIN REG 1unit/0.01ml Soln (100units/ml) SC SCH ×2 (05:46→11:31)
[2020-05-08] MEDS: ACCU-CHEK COMFORT CURVE STRIP VI SCH ×2 (05:47→11:31)
[2020-05-08] MEDS: METOCLOPRAMIDE HCL 5MG/ml INJ 2ml VIAL IV SCH ×2 (05:55→13:17)
[2020-05-08] MEDS: FUROSEMIDE 40 MG/4 ML VIAL IV SCH (05:55)
[2020-05-08] MEDS: PHENYLEPHRINE IV 250 ML IV SCH ×3 (05:56→12:50)
[2020-05-08 06:02] LABS: White Blood Cell 44.1 10^3/uL (4.4-10.8)
[2020-05-08 06:03] LABS: Basophils % (manual) 0 (0.0-2.0); Blast Cells 0; Eosinophils % (manual) 0 (0-7); Metamyelocytes % 0; Myelocytes % 0; Promyelocytes % 0; Reactive Lymphocytes 0
[2020-05-08] MEDS: DOPamine 1600MCG/ML D5W 250 ML IV SCH (07:30)
[2020-05-08] MEDS: ALBUTEROL SULF 2.5 MG/0.5ML(0.5%) NEB SOLN NEB SCH (07:35)
[2020-05-08] MEDS: BUDESONIDE (INHALATION) 0.5 MG/2 ML NEB NEB SCH (07:35)
[2020-05-08 07:52] LABS: Albumin 1.6 g/dL (3.4-5.0); BUN/Creatinine Ratio 20.6; Calcium 6.4 mg/dL (8.5-10.1)
[2020-05-08 08:00] LABS: Bilirubin, Total 1.2 mg/dL (0.2-1.0); Total Protein 5.2 g/dL (6.4-8.2)
--- NOTE | 2020-05-08 08:00 | NUR ---
unable to print ekg due to monitor not being able to print ekg strip
[2020-05-08] MEDS: FLUCONAZOLE 200MG/100ML 100 ML IV SCH ×2 (08:04→11:33)
[2020-05-08 08:09] LABS: Potassium 8.1 mmol/L (3.5-5.1)
--- NOTE | 2020-05-08 08:20 | NUR ---
Dr. mckeon paged regarding abnormal lab values
--- NOTE | 2020-05-08 08:42 | NUR ---
Patient status son antione updated on dads critical state that he is unlikely to survive and that family may visit patient for a few minutes due to his critical state. Son states "I'll have to see, I'm at work right now and need to see if my mother wants to see her ". All questions and concerns addressed at this time
[2020-05-08] MEDS ORDERED: InsuLIN REG 1unit/0.01ml Soln (100units/ml) IV ONE (09:00)
[2020-05-08] MEDS ORDERED: CALCIUM GLUC 4.65meq/50ml D5AE 50 ML IV ONE (09:00)
--- NOTE | 2020-05-08 09:02 | NUR ---
abnormal labs orders received from dr. mckeon
[2020-05-08] MEDS: PANTOPRAZOLE 40 MG/10 ML VIAL INJ IV SCH (09:48)
[2020-05-08] MEDS: SODIUM CHLOR 0.9% PF (SALINE LOCK) 10ML VIAL/SYR IV SCH (09:48)
[2020-05-08] MEDS: CHOLECALCIFEROL (VITD3) 2,000 UNIT CAP PO SCH (09:49)
[2020-05-08] MEDS: ENOXAPARIN SOD 60 MG/0.6 ML SYRINGE SC SCH (09:49)
[2020-05-08] MEDS: ASCORBIC ACID 1,000 MG TAB PO SCH (09:49)
[2020-05-08] MEDS: ZINC SULFATE 220mg CAP or TAB PO SCH (09:49)
[2020-05-08] MEDS: SODIUM BICARBONATE 50ML VIAL 150 ML in D5W 5% 1,000 ML IV SCH (10:01)
--- NOTE | 2020-05-08 11:31 | NUR ---
Dr. Fontaine on unit
[2020-05-08 11:46] LABS: Band Neutrophils % (manual) 5; Lymphocytes % (manual) 3 (10.0-50.0); Monocytes % (manual) 4 (0-12)
--- NOTE | 2020-05-08 11:46 | NUR ---
Nutrition Followup Notes Wt: 78.0 kg Pt is positive for COVID in isolation. Pt is intubated, sedated with propofol @ 19.08 ml/hr providing 504 kcals from lipids. Pt continues to be NPO with no alternate nutrition, consider starting pt on TF or TPN when medically feasible Est energy needs 3622-0451 kcal (25-30 kcal/kg BW 63.5kg), Est protein needs 51-64g (0.8-1g/kg BW 63.5kg). Will monitor and reassess prn. LABS: BUN 112 H CREAT 5.45 H GLU 250 H EVA 1.2 H CA 6.4 L ALB 1.6 L GI: Pt with no BM today per RN doc BS: 8 high risk. Refer to wound assessment report for further details PES: Altered nutrition related labs r/t current and chronic medical condition aeb pt with elevated HgbA1c, hyperglycemia, hypoalb Comments: Will continue to monitor NPO status, skin status, pertinent labs and weight trends. Will f/u in 2-3 days 1) Consider EN nutrition support Glucerna 1.2 @ 60ml/hr goal rate without propofol on board as tolerated and per MD approval. 2) Refer pt to OPD on Dc. 3) Advance diet as medically feasible. 4) Continue current plan of care
--- NOTE | 2020-05-08 11:55 | NUR ---
blood sugar 248 Insulin given per protocol
[2020-05-08] MEDS: fentaNYL Drip 2500mCg/250mlNS 250 ML IV SCH ×2 (12:15→15:31)
[2020-05-08] MEDS: MIDAZOLAM DRIP 50 mg/50mL 50 ML IV SCH (12:15)
[2020-05-08] MEDS: NOREPINEPHRINE 8 MG/250ML KIT 250 ML IV SCH (12:50)
[2020-05-08] MEDS: PROPOFOL 100 ML IV SCH (14:45)
[2020-05-08] MEDS ORDERED: LORazepam 2MG/ML-1ML VIAL IV PRN (15:45)
[2020-05-08] MEDS ORDERED: MORPHINE SULF INJ 2 MG/ML SYRINGE 1ML IV PRN (15:45)
--- NOTE | 2020-05-08 15:46 | NUR ---
code status had lengthy conversation with son antione, daughter in law, mother and other patients children. As a family they have decided to stop all live saving measures at this time and to do comfort measures only. Comfort measures confirmed with rn ayanna regarding terminal ween and code status. Dr. milan made aware of family wishes with orders received to terminally ween patient along with morphine and Ativan for comfort
--- NOTE | 2020-05-08 16:15 | NUR ---
Patient extubated per family wishes
--- NOTE | 2020-05-08 16:15 | NUR ---
Respiratory note: PT TERMINALLY EXTUBATED. VENT LEFT AT BEDSIDE.
--- NOTE | 2020-05-08 16:28 | NUR ---
Asystole on athletic monitor no pulse, spontaneous respirations, pupillary reflex, or response to painful stimuli
--- NOTE | 2020-05-08 16:30 | NUR ---
Dr. Fontaine notified of patients
--- NOTE | 2020-05-08 16:30 | NUR ---
Family notified of patients does not have a mortuary at this time but will call rn back when they have one
--- NOTE | 2020-05-08 16:36 | NUR ---
PRONOUNCEMENT OF REQUESTED TO PRONOUNCE PT SINCE DR. HAWKINS UNAVAILABLE. PT MADE DNR AND TERMINALLY WEANED AT 1615 FOUND PULSELESS AND APNEIC, ASYSTOLE IN 3 LEADS. ABSENCE OF HEART TONES AND RESPIRATIONS AFTER ONE FULL MINUTE AUSCULTATION. ABSENCE GAG, CORNEAL, DTR'S. PUPILS FIXED AND DILATED. TOD 163
--- NOTE | 2020-05-08 16:36 | NUR ---
[facility] notified of patients
--- NOTE | 2020-05-08 16:46 | NUR ---
[facility] called to notify of patient
--- NOTE | 2020-05-08 19:45 | NUR ---
REMAINS RELEASED FROM [facility] [employer]IST GAIL BHAT.
--- NOTE | 2020-05-08 20:45 | NUR ---
CONFIRMED WITH OK TO RELEASE REMAINS TO [facility]. EFREN MCGRAW ON [employer] SECONDARY WITNESS AND TRANSLATE.
--- NOTE | 2020-05-08 22:38 | NUR ---
[employer] [employer] ON SITE TO [employer] REMAINS. PERSONAL BELONGINGS TAGGED AND DOUBLE BAGGED. FAMILY TO [employer] IN THE MORNING.
== END 2020-05-08 23:14 | DRG 720 ==
LOC: ER 13:09 → TELE 17:54 → TELE-WESTW 04-28 23:35 → ICU WEST 05-01 12:50
PROVIDERS: ADMIT Internal Medicine; ATTEND Internal Medicine
PROC: XW033E5 Introduction of Remdesivir Anti-infective into Peripheral Vein, Percutaneous Approach, New Technology Group 5 (ICD-10-PCS; 2020-04-19)
PROC: XW13325 Transfusion of Convalescent Plasma (Nonautologous) into Peripheral Vein, Percutaneous Approach, New Technology Group 5 (ICD-10-PCS; principal; 2020-04-22)
PROC: 5A09357 Assistance with Respiratory Ventilation, Less than 24 Consecutive Hours, Continuous Positive Airway Pressure (ICD-10-PCS; 2020-04-30)
PROC: XW033H5 Introduction of Tocilizumab into Peripheral Vein, Percutaneous Approach, New Technology Group 5 (ICD-10-PCS; 2020-04-30)
PROC: 5A1955Z Respiratory Ventilation, Greater than 96 Consecutive Hours (ICD-10-PCS; 2020-05-01)
PROC: 0BH17EZ Insertion of Endotracheal Airway into Trachea, Via Natural or Artificial Opening (ICD-10-PCS; 2020-05-01)
PROC: 02H633Z Insertion of Infusion Device into Right Atrium, Percutaneous Approach (ICD-10-PCS; 2020-05-02)
PROC: B548ZZA Ultrasonography of Superior Vena Cava, Guidance (ICD-10-PCS; 2020-05-02)
DX: A41.89 Other specified sepsis (principal); U07.1 COVID-19; J12.89 Other viral pneumonia; R65.21 Severe sepsis with septic shock; N17.0 Acute kidney failure with tubular necrosis; D69.6 Thrombocytopenia, unspecified; E87.1 Hypo-osmolality and hyponatremia; J96.01 Acute respiratory failure with hypoxia; Z51.5 Encounter for palliative care; E11.22 Type 2 diabetes mellitus with diabetic chronic kidney disease; E44.0 Moderate protein-calorie malnutrition; D64.9 Anemia, unspecified; J98.2 Interstitial emphysema; E11.65 Type 2 diabetes mellitus with hyperglycemia; E66.01 Morbid (severe) obesity due to excess calories; E55.9 Vitamin D deficiency, unspecified; N18.9 Chronic kidney disease, unspecified; D68.69 Other thrombophilia; E87.5 Hyperkalemia; Z66 Do not resuscitate; Z68.30 Body mass index [BMI] 30.0-30.9, adult; Z87.01 Personal history of pneumonia (recurrent); E87.2 Acidosis
CPT/HCPCS: 36415; 36569; 36600; 71045; 80048; 80053; 80061; 80307; 81001; 82306; 82570; 82728; 82805; 82962; 83036; 83540; 83550; 83605; 83615; 83735; 83880; 84132; 84300; 84443; 84484; 85007; 85025; 85027; 85379; 85610; 85730; 86141; 86850; 86900; 86901; 87040; 87070; 87077; 87086; 87088; 87186; 87205; 87426; 93005; 93970; 94002; 94003; 94640; 94660; 96374; 97110; 97116; 97163; 97530; 99291; C9113; G0378; J0610; J0696; J1100; J1450; J1815; J2185; J2250; J2543; J2704; J3490; J7060